=== PATIENT | male | born 1960 | race African-American/Black ===

== ENCOUNTER 2017-03-04 12:05 | Inpatient (IN) | payer OTHER ==
[2017-03-04 13:23] VITALS: BMI 32.8
--- NOTE | 2017-03-04 16:14 | HP ---
COWS - Scale Resting Pulse: 1= MT 81-100 Sweatin=Flushed/Facial Moisture Restless Observation: 1= Difficult to Sit Still Pupil Size: 1= Pupils >than Normal Bone or Joint Aches: 2= Severe Diffuse Aches Runny Nose/ Eye Tearin= Nasal Congestion GI Upset > 30mins: 1= Stomach Cramp Tremor Observation: 1= Tremor Albin, Not Seen Yawning Observation: 0= None Anxiety or Irritability: 1=Feels Anxious/Irritable Goose Flesh Skin: 0=Smooth Skin COWS Score: 11 CIWA Score - CIWA Score Nausea/Vomitin Muscle Tremors: 2 Anxiety: 3 Agitation: 2 Paroxysmal Sweats: 3 Orientation: 0-Oriented Tacttile Disturbances: 2-Mild Itch/Numbness/Burn Auditory Disturbances: 0-None Visual Disturbances: 0-None Headache: 0-None Present CIWA-Ar Total Score: 14 Admission ROS [facility] - HPI Chief Complaint: I need help to stop using drugs Allergies/Adverse Reactions: Allergies Allergy/AdvReac Type Severity Reaction Status Date / Time No Known Allergies Allergy Verified 03/04/17 16:19 History of Present Illness: 56y/o m pt with h/o heroin dep. and chronic alcoholism seeking detox Exam Limitations: No Limitations - Ebola screening Have you traveled outside of the country in the last 21 days: No Have you had contact with anyone from an Ebola affected area: No Have you been sick,other than usual withdrawal symptoms: No Do you have a fever: No - Review of Systems Constitutional: Malaise, Night Sweats, Changes in sleep EENT: reports: Blurred Vision, Dental Problems Respiratory: reports: No Symptoms reported Cardiac: reports: No Symptoms Reported GI: reports: No Symptoms Reported : reports: No Symptoms Reported Musculoskeletal: reports: Muscle Pain Integumentary: reports: Sweating Neuro: reports: Numbness Endocrine: reports: No Symptoms Reported Hematology: reports: No Symptoms Reported Psychiatric: reports: No Sypmtoms Reported Other Systems: Reviewed and Negative Patient History - Patient Medical History Hx Chronic Obstructive Pulmonary Disease (COPD): No Hx Cancer: No Hx Cardiac Disorders: No Hx Congestive Heart Failure: No Hx Hypertension: Yes Hx Hypercholesterolemia: No Hx Pacemaker: No HX Cerebrovascular Accident: No Hx Seizures: No Hx Dementia: No Hx Diabetes: No Hx Gastrointestinal Disorders: No Hx Liver Disease: No Hx Genitourinary Disorders: No Hx Sexually Transmitted Disorders: No Hx Renal Disease (ESRD): No Hx Thyroid Disease: No Hx Human Immunodeficiency Virus (HIV): No Hx Hepatitis C: No Hx Depression: No Hx Suicide Attempt: No Hx Bipolar Disorder: No Hx Schizophrenia: No - Patient Surgical History Past Surgical History: No - PPD History Previous Implant?: No - Reproductive History Patient is a Female of Child Bearing Age (11 -55 yrs old): No - Smoking Cessation Smoking history: Current every day smoker Aproximately how many cigarettes per day: 20 Cigars Per Day: 0 Hx Chewing Tobacco Use: No Initiated information on smoking cessation: Yes 'Breaking Loose' booklet given: 03/04/17 - Substance & Tx. History Substance Use Type: Alcohol, Heroin - Substances Abused Alcohol Route: Inhalation Frequency: Daily Amount used: vodka 1/2 pt /d Age of first use: 18 Date of Last Use: 03/04/17 Heroin Route: Inhalation Frequency: Daily Amount used: 5-10 bags/d Age of first use: 19 Date of Last Use: 03/04/17 Family Disease History - Family Disease History Family Disease History: Diabetes: Brother (htn ), Sister (htn ), Other: Mother ( htn ) Admission Physical Exam S - Vital Signs Vital Signs: Vital Signs - 24 hr 03/04/17 13:20 Temperature 96.9 F L Pulse Rate 69 Respiratory 18 Rate Blood Pressure 130/63 - Physical General Appearance: Yes: Disheveled, Tremorous, Sweating, Anxious HEENTM: Yes: EOMI, Normal Voice, SUNSHINE, Nasal Congestion, Muffled/Hoarse Voice Respiratory: Yes: Chest Non-Tender, Lungs Clear, Normal Breath Sounds, No Respiratory Distress Neck: Yes: Supple, Trachea in good position Breast: Yes: Within Normal Limits Cardiology: Yes: Regular Rhythm, Regular Rate, S1, S2 Abdominal: Yes: Non Tender, Flat, Soft, Increased Bowel Sounds Genitourinary: Yes: Within Normal Limits Back: Yes: Decreased Range of Motion Musculoskeletal: Yes: Back pain Extremities: Yes: Tremors 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, Fully Oriented, Alert, Motor Strength 5/5, Normal Response Integumentary: Yes: Diaphoresis Lymphatic: Yes: Within Normal Limits - Diagnostic (1) Alcohol dependence with uncomplicated withdrawal Current Visit: Yes Status: Chronic (2) Uncomplicated opioid dependence Current Visit: Yes Status: Chronic (3) Nicotine dependence Current Visit: Yes Status: Chronic Qualifiers: Nicotine product type: cigarettes Substance use status: uncomplicated Qualified Code(s): F17.210 - Nicotine dependence, cigarettes, uncomplicated (4) HTN (hypertension) Current Visit: Yes Status: Chronic Qualifiers: Hypertension type: essential hypertension Qualified Code(s): I10 - Essential (primary) hypertension (5) S/P craniotomy Current Visit: Yes Status: Chronic (6) Obesity Current Visit: Yes Status: Chronic Qualifiers: Obesity severity: unspecified obesity severity Cleared for Admission S - Detox or Rehab [facility] Level of Care: Medically Managed Detox Regimen/Protocol: Methadone/Librium S Breath Alcohol Content Breath Alcohol Content: 0.033 Urine Drug Screen - Results Drug Screen Negative: No Urine Drug Screen Results: OPI-Opiates, TCA-Tricyclic Antidepress, OXY-Oxycodone
[2017-03-04] MEDS ORDERED: chlordiazePOXIDE HCL 25 MG CAPSULE PO PRN (16:34)
[2017-03-04] MEDS ORDERED: MAGNESIUM HYDROX 2400MG/30ML ORAL SUSPENSION 30 ML CUP PO PRN (16:34)
[2017-03-04] MEDS ORDERED: LOPERAMIDE HCL 2 MG CAPSULE PO PRN (16:34)
[2017-03-04] MEDS ORDERED: P-EPHED 60MG/TRIPROLIDI 2.5MG TABLET PO PRN (16:34)
[2017-03-04] MEDS ORDERED: MAG HYDROX/AL HYDROX/SIMETH 30 ML UNIT-DOSE CUP PO PRN (16:34)
[2017-03-04] MEDS ORDERED: diphenhydrAMINE HCL 50 MG CAPSULE PO PRN (16:34)
[2017-03-04] MEDS ORDERED: ACETAMINOPHEN 325 MG TABLET (FP) PO PRN (16:34)
[2017-03-04] MEDS ORDERED: hydrOXYzine PAMOATE 25 MG CAPSULE (FP) PO PRN (16:34)
[2017-03-04] MEDS ORDERED: MENTHOL/PHENOL 1 EACH UD MM PRN (16:34)
[2017-03-04] MEDS ORDERED: IBUPROFEN 400 MG TABLET (FP) PO PRN (16:34)
[2017-03-04] MEDS ORDERED: guaiFENesin/D-METHORPHAN HB 10 ML UNIT-DOSE CUPS PO PRN (16:34)
[2017-03-04] MEDS ORDERED: MAGNESIUM CITRATE 300 ML BOTTLE PO PRN (16:34)
[2017-03-04] MEDS ORDERED: METHADONE HCL 10 MG TABLET (FOR DETOX USE ONLY) PO ONE ×2 (17:15→23:00)
[2017-03-04] MEDS: chlordiazePOXIDE HCL 25 MG CAPSULE PO SCH ×2 (18:08→22:29)
[2017-03-04] MEDS: THIAMINE HCL 100 MG TABLET (FP) PO SCH (22:30)
[2017-03-04 23:17] LABS: URINE APPEARANCE SLCLOUDY; URINE BILIRUBIN NEGATIVE (NEGATIVE); URINE BLOOD NEGATIVE (NEGATIVE); URINE GLUCOSE (UA) NEGATIVE (NEGATIVE); URINE KETONE NEGATIVE (NEGATIVE); URINE LEUK ESTERASE NEGATIVE (NEGATIVE); URINE NITRITE NEGATIVE (NEGATIVE); URINE PROTEIN NEGATIVE (NEGATIVE); URINE UROBILINOGEN NEGATIVE E.U./dl (0.2-1.0)
[2017-03-04 23:19] LABS: URINE COLOR YELLOW
[2017-03-05] MEDS: chlordiazePOXIDE HCL 25 MG CAPSULE PO SCH ×4 (05:40→22:19)
--- NOTE | 2017-03-05 08:56 | PN ---
BHS Progress Note Note: EKG shown first degree AV block with occasional PVC. pt states he had a heart attack about 10yrs ago and his EKGs always show some kind of abnormality. Pt denies of any chest pain, no SOB, no pain radiating to any part of body. Pt was advised to let staff aware of any chest pain.
[2017-03-05 09:58] LABS: MCH 26.3 pg (25.7-33.7); MEAN CELL VOLUME 82.3 fl (80-96); MEAN PLT VOLUME 11.3 fl (7.5-11.1); PLATELET COUNT 120 K/MM3 (134-434); RDW 15.3 % (11.9-15.9)
[2017-03-05] MEDS ORDERED: NICOTINE 21 MG/24 HOURS TOPICAL PATCH TD SCH (10:00)
[2017-03-05] MEDS ORDERED: METHADONE HCL 10 MG TABLET (FOR DETOX USE ONLY) PO SCH (10:00)
[2017-03-05] MEDS ORDERED: PRENATAL VITAMINS W/ FOLIC ACID TABLET (FP) PO SCH (10:00)
[2017-03-05 10:09] LABS: ALBUMIN 3.6 g/dl (3.4-5.0); ALK PHOS 80 U/L (45-117); ANION GAP 6 (8-16); BILIRUBIN,TOTAL 0.4 mg/dL (0.2-1.0); CALCIUM 8.9 mg/dL (8.5-10.1); CO2 28 mmol/L (21-32); CREATININE 1.1 mg/dL (0.7-1.3); GLUCOSE,RANDOM 97 mg/dL (74-106); SGOT/AST 28 U/L (15-37); SGPT/ALT 36 U/L (12-78); TOT PROT 7.1 g/dl (6.4-8.2)
--- NOTE | 2017-03-05 10:10 | EKG ---
Test Reason : Blood Pressure : / mmHG Vent. Rate : 068 BPM Atrial Rate : 054 BPM P-R Int : 242 ms QRS Dur : 080 ms QT Int : 446 ms P-R-T Axes : 064 030 026 degrees QTc Int : 474 ms SINUS BRADYCARDIA WITH 1ST DEGREE A-V BLOCK WITH OCCASIONAL PREMATURE VENTRICULAR COMPLEXES NONSPECIFIC T WAVE ABNORMALITY PROLONGED QT ABNORMAL ECG WHEN COMPARED WITH ECG OF 04-MAR-2017 16:34, CRITERIA FOR SEPTAL INFARCT ARE NO LONGER PRESENT NON-SPECIFIC CHANGE IN ST SEGMENT IN ANTERIOR LEADS QT HAS LENGTHENED Confirmed by KARRIE GARCIA, EDISON ([id number]) on 03/05/2017 10:10:08 AM Referred By: Confirmed By:EDISON YOON MD
--- NOTE | 2017-03-05 10:13 | PN ---
[facility] CIWA - CIWA Score Nausea/Vomitin-No Nausea/No Vomiting Muscle Tremors: 3 Anxiety: 3 Agitation: 3 Paroxysmal Sweats: 3 Orientation: 0-Oriented Tacttile Disturbances: 0-None Auditory Disturbances: 0-None Visual Disturbances: 0-None Headache: 0-None Present CIWA-Ar Total Score: 12 S COWS - Scale Resting Pulse: 0= [place] 80 or Below Sweatin=Flushed/Facial Moisture Restless Observation: 1= Difficult to Sit Still Pupil Size: 0= Normal to Room Light Bone or Joint Aches: 1= Mild Discomfort Runny Nose/ Eye Tearin= Nasal Congestion GI Upset > 30mins: 0= None Tremor Observation of Outstretched Hands: 2= Slight Tremor Visible Yawning Observation: 2= >3x During Session Anxiety or Irritability: 2=Irritable/Anxious Goose Flesh Skin: 0=Smooth Skin COWS Score: 11 S Progress Note (SOAP) Subjective: agitation anxiety sweats interrupted sleep tired Objective: 03/05/17 10:04 Vital Signs Temperature 97.9 F 03/05/17 09:55 Pulse Rate 63 03/05/17 09:55 Respiratory Rate 20 03/05/17 09:55 Blood Pressure 140/74 03/05/17 09:55 O2 Sat by Pulse Oximetry (%) Laboratory Tests 03/04/17 03/05/17 21:29 06:00 Sodium 144 Potassium 4.1 Chloride 110 H Urine Color Yellow Urine Appearance Slcloudy Urine pH 5.0 Ur Specific [place] 1.026 Urine Protein Negative Urine Glucose (UA) Negative Urine Ketones Negative Urine Blood Negative Urine Nitrite Negative Urine Bilirubin Negative Urine Urobilinogen Negative Ur Leukocyte Esterase Negative labs pending awake/alert ambulating no acute distress Assessment: 03/05/17 10:13 withdrawal sx Plan: continue detox increase fluids labs pending
[2017-03-05] MEDS ORDERED: amLODIPine BESYLATE 10 MG TABLET (FP) PO ONE (10:38)
[2017-03-05] MEDS ORDERED: HYDROCHLOROTHIAZIDE 25 MG TABLET (FP) PO ONE (10:38)
--- NOTE | 2017-03-05 11:06 | CONSULT ---
[facility] Psychiatric Consult - Data Date of interview: 03/05/17 Admission source: [facility] Identifying data: Readmission to [facility] for this 56 y/o AA male seeking detox treatment for alcohol and heroin dependence.Patient is single without children,homeless,unemployed and supported on Public Assistance. Substance Abuse History: - Smoking Cessation. Smoking history: Current every day smoker. Aproximately how many cigarettes per day: 20. Cigars Per Day: 0. Hx Chewing Tobacco Use: No. Initiated information on smoking cessation: Yes. ' Breaking Loose' booklet given: 03/04/17. - Substance & Tx. History. Substance Use Type: Alcohol, Heroin. - Substances Abused. Alcohol. Route: Inhalation. Frequency: Daily. Amount used: vodka 1/2 pt /d. Age of first use : 18. Date of Last Use: 03/04/17. Heroin. Route: Inhalation. Frequency: Daily. Amount used: 5-10 bags/d. Age of first use: 19. Date of Last Use: 03/17. Confirmed by patient. Medical History: Hepatitis C,hypertension and a history of head trauma ( craniotomy performed in 1985). Psychiatric History: Patient denies. Physical/Sexual Abuse/Trauma History: Patient denies. Additional Comment: Urine Drug Screen Results: OPI-Opiates, TCA-Tricyclic Antidepressant, OXY-Oxycodone.Noted. Mental Status Exam - Mental Status Exam Alert and Oriented to: Time, Place, Person Cognitive Function: Good Patient Appearance: Well Groomed (surgical scar on forehead) Mood: Hopeful, Euthymic Affect: Appropriate, Normal Range Patient Behavior: Fatigued, Appropriate, Cooperative Speech Pattern: Clear, Appropriate Voice Loudness: Normal Thought Process: Goal Oriented Thought Disorder: Not Present Hallucinations: Denies Suicidal Ideation: Denies Homicidal Ideation: Denies Insight/Judgement: Poor Sleep: Poorly, Difficulty falling asleep (asking for ambien) Appetite: Good Muscle strength/Tone: Normal Gait/Station: Normal Psychiatric Findings - Problem List ([place] 1, 2,3) (1) Alcohol dependence with uncomplicated withdrawal Current Visit: Yes Status: Acute (2) Uncomplicated opioid dependence Current Visit: Yes Status: Chronic (3) Nicotine dependence Current Visit: Yes Status: Acute Qualifiers: Nicotine product type: cigarettes Substance use status: uncomplicated Qualified Code(s): F17.210 - Nicotine dependence, cigarettes, uncomplicated (4) HTN (hypertension) Current Visit: Yes Status: Chronic Qualifiers: Hypertension type: essential hypertension Qualified Code(s): I10 - Essential (primary) hypertension (5) Obesity Current Visit: Yes Status: Chronic Qualifiers: Obesity severity: unspecified obesity severity (6) S/P craniotomy Current Visit: Yes Status: Chronic (7) Insomnia Current Visit: Yes Status: Acute - Initial Treatment Plan Initial Treatment Plan: Psychoeducation.Detoxification.Ambien 10 mg po prn hs.Patient is made aware of the risk of parasomnias.He agrees with this plan.Observation.
[2017-03-05 21:23] VITALS: BP 152/72; PULSE 69; TEMP 98.8
[2017-03-05] MEDS ORDERED: ZOLPIDEM TARTRATE 10 MG TABLET (PARK CARE ONLY) PO PRN (22:00)
[2017-03-05] MEDS: THIAMINE HCL 100 MG TABLET (FP) PO SCH (22:17)
[2017-03-06] MEDS ORDERED: amLODIPine BESYLATE 10 MG TABLET (FP) PO SCH (10:00)
[2017-03-06] MEDS ORDERED: METHADONE HCL 5 MG TABLET (FOR DETOX USE ONLY) PO SCH (10:00)
[2017-03-06] MEDS ORDERED: HYDROCHLOROTHIAZIDE 25 MG TABLET (FP) PO SCH (10:00)
--- NOTE | 2017-03-06 16:30 | EKG ---
Test Reason : Blood Pressure : / mmHG Vent. Rate : 070 BPM Atrial Rate : 070 BPM P-R Int : 218 ms QRS Dur : 078 ms QT Int : 384 ms P-R-T Axes : 065 061 018 degrees QTc Int : 414 ms SINUS RHYTHM WITH 1ST DEGREE A-V BLOCK WITH FREQUENT PREMATURE VENTRICULAR COMPLEXES SEPTAL INFARCT , AGE UNDETERMINED ABNORMAL ECG NO PREVIOUS ECGS AVAILABLE Confirmed by CHRISTY JACKSON MD ([id number]) on 03/06/2017 4:29:50 PM Referred By: Confirmed By:CHRISTY JACKSON MD
[2017-03-06] MEDS ORDERED: chlordiazePOXIDE 5 MG CAPSULE PO SCH (17:00)
[2017-03-07] MEDS ORDERED: chlordiazePOXIDE HCL 10 MG CAPSULE PO SCH (17:00)
[2017-03-08] MEDS ORDERED: METHADONE HCL 10 MG TABLET (FOR DETOX USE ONLY) PO SCH (10:00)
[2017-03-09] MEDS ORDERED: METHADONE HCL 5 MG TABLET (FOR DETOX USE ONLY) PO SCH (06:00)
--- NOTE | 2017-04-10 14:19 | DS ---
[facility] Detox Discharge Summary Admission Date: 03/04/17 Discharge Date: 03/05/17 - History Present History: Alcohol Dependence, Opioid Dependence - Physical Exam Results Vital Signs: Vital Signs Temperature 98.8 F 03/05/17 21:23 Pulse Rate 69 03/05/17 21:23 Respiratory Rate 20 03/05/17 21:23 Blood Pressure 152/72 03/05/17 21:23 O2 Sat by Pulse Oximetry (%) - Treatment Hospital Course: Detox Protocol Followed - Medication Discharge Medications: Ambulatory Orders Amlodipine Besylate [Norvasc -] 10 mg PO DAILY 03/04/17 Hydrochlorothiazide [Hctz -] 25 mg PO DAILY 03/04/17 Zolpidem Tartrate [Ambien] 10 mg PO HS PRN 03/04/17 - Diagnosis (1) Alcohol dependence with uncomplicated withdrawal Status: Chronic (2) Uncomplicated opioid dependence Status: Chronic (3) Nicotine dependence Status: Acute Qualifiers: Nicotine product type: cigarettes Substance use status: uncomplicated Qualified Code(s): F17.210 - Nicotine dependence, cigarettes, uncomplicated (4) HTN (hypertension) Status: Chronic Qualifiers: Hypertension type: essential hypertension Qualified Code(s): I10 - Essential (primary) hypertension (5) S/P craniotomy Status: Chronic (6) Obesity Status: Chronic Qualifiers: Obesity severity: unspecified obesity severity - AMA Did Patient Leave Against Medical Advice: No (PT WAS D/CINTIA FOR VERBAL ABUSE TO RN )
== END 2017-03-05 22:56 | disposition left against medical advice (07) | DRG 770 ==
LOC: YASAS 12:05 → Y6N 16:50
PROVIDERS: ADMIT Internal Medicine Addiction Medicine; ATTEND Internal Medicine Addiction Medicine
PROC: HZ2ZZZZ Detoxification Services for Substance Abuse Treatment (ICD-10-PCS; principal; 2017-03-04)
DX: F11.20 Opioid dependence, uncomplicated (principal); F10.230 Alcohol dependence with withdrawal, uncomplicated; F17.210 Nicotine dependence, cigarettes, uncomplicated; I10 Essential (primary) hypertension; I44.2 Atrioventricular block, complete; E66.9 Obesity, unspecified; Z68.32 Body mass index [BMI] 32.0-32.9, adult; G47.00 Insomnia, unspecified
CPT/HCPCS: 36415; 80053; 81003; 85027; 86593; 93005; 93010

== ENCOUNTER 2019-11-05 15:31 | Inpatient (IN) | payer OTHER ==
[2019-11-05 17:05] VITALS: BMI 30.1
--- NOTE | 2019-11-05 20:00 | HP ---
CIWA Score Nausea/Vomitin Muscle Tremors: 4-Moderate,w/Arms Extend Anxiety: 3 Agitation: 1-Slight > Activity Paroxysmal Sweats: 3 (Increased facial moisture) Orientation: 0-Oriented Tacttile Disturbances: 0-None Auditory Disturbances: 0-None Visual Disturbances: 0-None Headache: 0-None Present CIWA-Ar Total Score: 14 - Admission Criteria [facility]ASAS Guidelines: Admission for Medically Managed Detox: Requires at least one of the followin. CIWA greater than 12 2. Seizures within the past 24 hours 3. Delirium tremens within the past 24 hours 4. Hallucinations within the past 24 hours 5. Acute intervention needed for co occurring medical disorder 6. Acute intervention needed for co occurring psychiatric disorder 7. Severe withdrawal that cannot be handled at a lower level of care (continued vomiting, continued diarrhea, abnormal vital signs) requiring intravenous medication and/or fluids 8. Patient presents the following: CIWA greater than 12 Admission Criteria Met: Admission criteria met Admitting History and Physical - Smoking History Smoking history: Current every day smoker Aproximately how many cigarettes per day: 20 Admission ROS [facility] Chief Complaint: Here because mandated by national service officer. Allergies/Adverse Reactions: Allergies Allergy/AdvReac Type Severity Reaction Status Date / Time No Known Allergies Allergy Verified 11/05/19 16:50 History of Present Illness: 59 yo presents w/ alcohol and opiate use mandated into detox by parole. Seizure 3 years ago. Used to be on Dilantin. Denies blackouts or overdoses. BC: 0.0 UToX: + FEN/MOP/MTD/BAR Alcohol use began at age 17. Currently drinks 1/2 - 1 pint vodka daily x 4 months. Drinks 1 -16 oz beer. Last drink 11/04/19. Heroin use since age 20. Hx 2 yrs MMTP before going to [facility] in July. Current Methadone dose is "80 or 90" mg (Unsure). States LDM 11/05/19. States relapsing w/ heroin when misses clinic visit. No Narcan kit at home. Discussed benefits and states is interested in getting one. Nicotine use since age teens. Currently smokes 1/2 PPD. PMHx: HTN, Sporadic seizures r/t TBI (None in 3 yrs) Hx Abnormak EKG noted on 03/05/17. MHHx: Depression. Anxiety. Schizophrenia. On meds. Sees a Psych regularly. Denies thoughts of harming self or others. SHx: Domiciled. Unemployed ([employer]). States currently mandated by [place]. Search Terms: Stephen Acevedo, 1960 Search Date: 11/05/2019 08:00:34 PM The Drug Utilization Report below displays all of the controlled substance prescriptions, if any, that your patient has filled in the last twelve months. The information displayed on this report is compiled from pharmacy submissions to the Department, and accurately reflects the information as submitted by the pharmacies. This report was requested by: Valerie Damon | Reference #: [id number] There are no results for the search terms that you entered. Exam Limitations: No Limitations - Ebola screening Have you traveled outside of the country in the last 21 days: No Have you had contact with anyone from an Ebola affected area: No Have you been sick,other than usual withdrawal symptoms: No Do you have a fever: No - Review of Systems Constitutional: Chills, Diaphoresis, Changes in sleep (Difficulty faliing and staying asleep), Weight Stable EENT: reports: Blurred Vision, Nose Congestion, Dental Problems (Bad teeth. Chews and swallows ok.) Respiratory: reports: SOB with Exertion (w/ walking too much and stair climbing) Cardiac: reports: Other (Abnormal EKG. Denies surgery/stents) GI: reports: Diarrhea (loose, brownish/oneill x 5 x this a.m.), Nausea, Vomiting ( this a.m. vomited yellowish liquid) : reports: No Symptoms Reported Musculoskeletal: reports: No Symptoms Reported Integumentary: reports: No Symptoms Reported Neuro: reports: Seizure (None recently), Tremors Endocrine: reports: No Symptoms Reported Hematology: reports: No Symptoms Reported Psychiatric: reports: Mood/Affect Appropiate, Orientated x3, Anxious, Depressed (Denies thoughts of harming self or others.) Patient History - Patient Medical History Hx Asthma: No Hx Chronic Obstructive Pulmonary Disease (COPD): No Hx Cancer: No Hx Cardiac Disorders: No Hx Congestive Heart Failure: No Hx Hypertension: Yes Hx Hypercholesterolemia: No Hx Pacemaker: No HX Cerebrovascular Accident: No Hx Seizures: No Hx Dementia: No Hx Diabetes: No Hx Gastrointestinal Disorders: No Hx Liver Disease: No Hx Genitourinary Disorders: No Hx Sexually Transmitted Disorders: No Hx Renal Disease (ESRD): No Hx Thyroid Disease: No Hx Human Immunodeficiency Virus (HIV): No Hx Hepatitis C: No Hx Depression: No Hx Suicide Attempt: No Hx Bipolar Disorder: No Hx Schizophrenia: No - Patient Surgical History Past Surgical History: No Hx Neurologic Surgery: Yes (crainotomy in 1985) - PPD History Previous Implant?: Yes Documented Results: Negative w/proof Implanted On Prior R Admission?: Yes Date: 03/06/17 PPD to be Administered?: Yes - Smoking Cessation Smoking history: Current every day smoker Aproximately how many cigarettes per day: 10 Cigars Per Day: 0 Hx Chewing Tobacco Use: No Initiated information on smoking cessation: Yes 'Breaking Loose' booklet given: 11/05/19 - Substance & Tx. History Hx Alcohol Use: Yes Hx Substance Use: Yes Substance Use Type: Alcohol, Heroin, Opiates Hx Substance Use Treatment: Yes (detox, rehab, Currently on MMTP) - Substances abused Alcohol Substance route: Oral Frequency: Daily Amount used: half of pint of vodka/ 16 ounces of beer. Age of first use: 17 Date of last use: 11/04/19 Heroin Substance route: Inhalation Frequency: Daily Amount used: 3 bags Age of first use: 20 Date of last use: 11/04/19 Other Other (specify): Benzo Substance route: Oral Frequency: Daily Amount used: not sure of the amount Age of first use: 20 Date of last use: 11/04/19 Admission Physical Exam BHS - Vital Signs Vital Signs: Vital Signs - 24 hr 11/05/19 16:50 Temperature 98.8 F Pulse Rate 62 Respiratory 16 Rate Blood Pressure 144/84 - Physical General Appearance: Yes: Nourished, Mild Distress, Tremorous, Sweating ( Increased facial moisture), Anxious HEENTM: Yes: EOMI, Hearing grossly Normal, Normocephalic, Normal Voice, SUNSHINE, Pharynx Normal, Nasal Congestion, Other (Contact Lenses insitu.) Respiratory: Yes: Lungs Clear (Pulse Ox = 97%), Normal Breath Sounds, No Respiratory Distress Neck: Yes: No masses,lesions,Nodules, Supple Breast: Yes: Breast Exam Deferred Cardiology: Yes: S1, S2, Bradycardia (HR: 58) Abdominal: Yes: Non Tender, Flat, Soft, Increased Bowel Sounds Genitourinary: Yes: Within Normal Limits Back: Yes: Normal Inspection Musculoskeletal: Yes: full range of Motion, Gait Steady Extremities: Yes: Normal Capillary Refill (Peripheral pulses +), Tremors 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, Fully Oriented, Alert, Motor Strength 5/5, Normal Response Integumentary: Yes: Normal Color, Warm, Diaphoresis, Other (Old surgical scars on head.) Lymphatic: Yes: Within Normal Limits - Diagnostic (1) Methadone maintenance therapy patient Current Visit: Yes Status: Chronic (2) Nicotine dependence Current Visit: Yes Status: Chronic Qualifiers: Nicotine product type: cigarettes Substance use status: uncomplicated Qualified Code(s): F17.210 - Nicotine dependence, cigarettes, uncomplicated (3) Alcohol dependence with uncomplicated withdrawal Current Visit: Yes Status: Acute (4) HTN (hypertension) Current Visit: Yes Status: Chronic Qualifiers: Hypertension type: essential hypertension Qualified Code(s): I10 - Essential (primary) hypertension (5) Obesity Current Visit: Yes Status: Chronic (6) Abnormal EKG Current Visit: Yes Status: Chronic (7) Hx of seizure disorder Current Visit: No Status: Resolved (8) Hx of traumatic brain injury Current Visit: Yes Status: Chronic Cleared for Admission S - Detox or Rehab [facility] Level of Care: Medically Managed Detox Regimen/Protocol: Valium Claeared for Rehab Admission: No Breathalyzer - Breathalyzer Breathalyzer: 0 Inpatient Rehab Admission - Rehab Decision to Admit Inpatient rehab admission?: No
[2019-11-05] MEDS ORDERED: BISMUTH SUBSALICYLATE 524 MG/30 ML UD PO PRN (20:55)
[2019-11-05] MEDS ORDERED: MAGNESIUM CITRATE 300 ML BOTTLE PO PRN (20:55)
[2019-11-05] MEDS ORDERED: MAGNESIUM HYDROX 2400MG/30ML ORAL SUSPENSION 30 ML CUP PO PRN (20:55)
[2019-11-05] MEDS ORDERED: MENTHOL/PHENOL 1 EACH UD MM PRN (20:55)
[2019-11-05] MEDS ORDERED: MAG HYDROX/AL HYDROX/SIMETH 30 ML UNIT-DOSE CUP PO PRN (20:55)
[2019-11-05] MEDS ORDERED: IBUPROFEN 400 MG TABLET (FP) PO PRN (20:55)
[2019-11-05] MEDS ORDERED: NICOTINE POLACRILEX 2 MG GUM BUC PRN (20:55)
[2019-11-05] MEDS ORDERED: ACETAMINOPHEN 325 MG TABLET (FP) PO PRN ×2 (20:55)
[2019-11-05] MEDS ORDERED: MELATONIN 5 MG TABLETS PO PRN (20:55)
[2019-11-05] MEDS: diazePAM 5 MG TABLET PO SCH (22:45)
[2019-11-05] MEDS: THIAMINE HCL 100 MG TABLET (FP) PO SCH (22:45)
[2019-11-06] MEDS: diazePAM 5 MG TABLET PO SCH ×3 (06:38→22:14)
[2019-11-06] MEDS ORDERED: METHADONE HCL 10 MG TABLET PO SCH (10:00)
[2019-11-06] MEDS: METHADONE HCL 40 MG DISPERSABLE TABLET PO SCH (10:32)
[2019-11-06] MEDS: amLODIPine BESYLATE 10 MG TABLET (FP) PO SCH (10:33)
[2019-11-06] MEDS: NICOTINE 14 MG/24 HOURS TOPICAL PATCH TD SCH (10:33)
[2019-11-06] MEDS: HYDROCHLOROTHIAZIDE 25 MG TABLET (FP) PO SCH (10:33)
[2019-11-06] MEDS: PRENATAL VITAMINS W/ FOLIC ACID TABLET (FP) PO SCH (10:33)
[2019-11-06 10:37] LABS: MCH 26.4 pg (25.7-33.7); MCHC 32.4 g/dl (32.0-35.9); MEAN CELL VOLUME 81.4 fl (80-96); MEAN PLT VOLUME 10.1 fl (7.5-11.1); PLATELET COUNT 135 K/MM3 (134-434); RBC 4.54 M/mm3 (4.00-5.60); RDW 15.3 % (11.9-15.9)
[2019-11-06 10:49] LABS: ALBUMIN 3.3 g/dl (3.4-5.0); BILIRUBIN,TOTAL 0.2 mg/dL (0.2-1); BLOOD UREA NITROGEN 18.6 mg/dL (7-18); CALCIUM 8.6 mg/dL (8.5-10.1); CREATININE 1.1 mg/dL (0.55-1.3); TOT PROT 6.1 g/dl (6.4-8.2)
--- NOTE | 2019-11-06 16:36 | PN ---
[facility] CIWA - CIWA Score Nausea/Vomitin-No Nausea/No Vomiting Muscle Tremors: 3 Anxiety: 2 Agitation: 2 Paroxysmal Sweats: 2 Orientation: 0-Oriented Tacttile Disturbances: 0-None Auditory Disturbances: 0-None Visual Disturbances: 2-Mild Sensitivity Headache: 0-None Present CIWA-Ar Total Score: 11 S Progress Note (SOAP) Subjective: Tremors, Anxious, Sweating. Objective: PATIENT A & O X 3, OBSERVED AMBULATING ON DETOX UNIT UNASSISTED. IN NO ACUTE DISTRESS. 11/06/19 16:32 Vital Signs Temperature 98.1 F 11/06/19 13:46 Pulse Rate 58 L 11/06/19 13:46 Respiratory Rate 18 11/06/19 13:46 Blood Pressure 151/82 11/06/19 13:46 O2 Sat by Pulse Oximetry (%) Laboratory Tests 11/06/19 11/06/19 11/06/19 07:40 07:40 07:40 WBC 4.0 RBC 4.54 Hgb 12.0 Hct 37.0 MCV 81.4 MCH 26.4 MCHC 32.4 RDW 15.3 Plt Count 135 MPV 10.1 D Sodium 144 Potassium 4.0 Chloride 110 H Carbon Dioxide 28 Anion Gap 6 L BUN 18.6 H Creatinine 1.1 Est GFR (CKD-EPI)AfAm 85.31 Est GFR (CKD-EPI)NonAf 73.61 Random Glucose 96 Calcium 8.6 Total Bilirubin 0.2 AST 21 ALT 28 Alkaline Phosphatase 88 Total Protein 6.1 L Albumin 3.3 L RPR Titer Nonreactive LABS NOTED. Assessment: 11/06/19 16:34 WITHDRAWAL SYMPTOMS. Plan: CONTINUE DETOX. INCREASE DAILY ORAL WATER INTAKE. STAFF MECHANICAL ENGINEER OBSERVED PATIENT DISCARDING MMTP DOSE THIS AM. WHEN ASKED WHY , PATIENT STATED THAT "HE DID NOT FEEL THAT HE NEEDED IT FOR TODAY." PATIENT ADVISED TO TAKE DAILY MMTP DOSES EACH DAY DURING REMAINDER OF HIS DETOX ADMISSION AND TO CONSULT MEDICAL PROVIDER AT HIS MMTP CLINIC ([facility]) AFTER DISCHARGE FOR FURTHER EVALUATION IF HE REQUIRES A DOSAGE ADJUSTMENT. PATIENT VERBALIZED UNDERSTANDING OF RECOMMENDATION.
--- NOTE | 2019-11-06 16:38 | CONSULT ---
[facility] Psychiatric Consult - Data Date of interview: 11/06/19 Admission source: [facility] Identifying data: Revisit to [facility] and admission to [address] [place] [address] for this 59 y/o AA male self-referred for detoxification (LUIS EDUARDO issues : alcohol, heroin, nicotine ). Patient is single without children, homeless, unemployed and supported on Public Assistance. Substance Abuse History: Discussed with patient. Details in current [facility] report as follows : Smoking history: Current every day smoker. Aproximately how many cigarettes per day: 10. Cigars Per Day: 0. Hx Chewing Tobacco Use: No. Initiated information on smoking cessation: Yes. 'Breaking Loose' booklet given : 11/05/19. - Substance & Tx. History. Hx Alcohol Use: Yes. Hx Substance Use : Yes. Substance Use Type: Alcohol, Heroin, Opiates. Hx Substance Use Treatment: Yes (detox, rehab, Currently on MMTP). - Substances abused. Alcohol. Substance route: Oral. Frequency: Daily. Amount used: half of pint of vodka/ 16 ounces of beer. Age of first use: 17. Date of last use: . Heroin. Substance route: Inhalation. Frequency: Daily. Amount used: 3 bags. Age of first use: 20. Date of last use: 11/04/19. Other. Other ( specify): Benzo. Substance route: Oral. Frequency: Daily. Amount used: not sure of the amount. Age of first use: 20. Date of last use: 11/04/19 Medical History: Medical profile is remarkable for hepatitis C, hypertension and a history of head trauma (craniotomy performed in 1985). Psychiatric History: No reported history of psychiatric hospitalizations. Patient endorses the diagnosis of Anxiety Disorder and Schizoaffective Disorder. Mr Mckeon is reportedly followed at [facility] in [place]. Medicated with remeron + depakote (doses not recalled). Patient denies history of suicide attempts. Currently on methadone maintenance (80 mg/ day) at the [facility] MMTP program. Physical/Sexual Abuse/Trauma History: Patient denies. Additional Comment: No toxicology available for review. Mental Status Exam - Mental Status Exam Alert and Oriented to: Time, Place, Person Cognitive Function: Good Patient Appearance: Well Groomed Mood: Hopeful Affect: Appropriate, Normal Range Patient Behavior: Appropriate, Cooperative Speech Pattern: Clear Voice Loudness: Normal Thought Process: Goal Oriented Thought Disorder: Not Present Hallucinations: Denies Suicidal Ideation: Denies Homicidal Ideation: Denies Insight/Judgement: Poor Sleep: Poorly, Difficulty falling asleep Appetite: Good Muscle strength/Tone: Normal Gait/Station: Normal Psychiatric Findings - Problem List ([place] 1, 2,3) (1) Alcohol dependence with uncomplicated withdrawal Current Visit: Yes Status: Acute (2) Opioid dependence on agonist therapy Current Visit: Yes Status: Chronic (3) Nicotine dependence Current Visit: Yes Status: Chronic Qualifiers: Nicotine product type: cigarettes Substance use status: uncomplicated Qualified Code(s): F17.210 - Nicotine dependence, cigarettes, uncomplicated (4) Schizophrenia Current Visit: Yes Status: Chronic Comment: As per self-report. (5) Insomnia Current Visit: Yes Status: Chronic - Initial Treatment Plan Initial Treatment Plan: Psychoeducation. Sleep hygiene. Detoxification. AA/NA meetings. Remeron 15 mg po hs. Side effects/benefits are discussed with the patient. Gave consent (verbal) to MD. Call made by underwriter solicitation director to [facility], at [phone], for verification of medications : mailbox full/no messages accepted. Observation.
[2019-11-06] MEDS: diazePAM 5 MG TABLET PO PRN (17:48)
[2019-11-06] MEDS ORDERED: OLANZapine 5 MG TABLET PO SCH (22:00)
[2019-11-06] MEDS: THIAMINE HCL 100 MG TABLET (FP) PO SCH (22:13)
[2019-11-06] MEDS: MIRTAZAPINE 15 MG TABLET (FP) PO SCH (22:13)
--- NOTE | 2019-11-06 23:27 | EKG ---
Test Reason : Blood Pressure : / mmHG Vent. Rate : 053 BPM Atrial Rate : 053 BPM P-R Int : 236 ms QRS Dur : 084 ms QT Int : 512 ms P-R-T Axes : 056 030 -15 degrees QTc Int : 480 ms SINUS BRADYCARDIA WITH 1ST DEGREE A-V BLOCK POSSIBLE LEFT ATRIAL ENLARGEMENT SEPTAL INFARCT , AGE UNDETERMINED T WAVE ABNORMALITY, CONSIDER LATERAL ISCHEMIA ABNORMAL ECG WHEN COMPARED WITH ECG OF 05-MAR-2017 06:11, PREMATURE VENTRICULAR COMPLEXES ARE NO LONGER PRESENT SEPTAL INFARCT IS NOW PRESENT T WAVE VARIATION Confirmed by ANATOLIY GARCIA, TEO ([id number]) on 11/06/2019 11:27:20 PM Referred By: JOSE A MUSA Confirmed By:TEO COPE MD
[2019-11-07] MEDS: METHADONE HCL 40 MG DISPERSABLE TABLET PO SCH (06:29)
[2019-11-07] MEDS: diazePAM 5 MG TABLET PO SCH ×2 (06:29→18:11)
[2019-11-07] MEDS: HYDROCHLOROTHIAZIDE 25 MG TABLET (FP) PO SCH (10:45)
[2019-11-07] MEDS: amLODIPine BESYLATE 10 MG TABLET (FP) PO SCH (10:45)
[2019-11-07] MEDS: PRENATAL VITAMINS W/ FOLIC ACID TABLET (FP) PO SCH (10:45)
[2019-11-07] MEDS: NICOTINE 14 MG/24 HOURS TOPICAL PATCH TD SCH (10:45)
[2019-11-07] MEDS: diazePAM 5 MG TABLET PO PRN ×2 (12:47→21:53)
--- NOTE | 2019-11-07 16:48 | PN ---
[facility] CIWA - CIWA Score Nausea/Vomitin-Mild Nausea/No Vomiting Muscle Tremors: 2 Anxiety: 2 Agitation: 2 Paroxysmal Sweats: 2 Orientation: 0-Oriented Tacttile Disturbances: 1-Very Mild Itch/Numbness Auditory Disturbances: 0-None Visual Disturbances: 0-None Headache: 0-None Present CIWA-Ar Total Score: 10 S Progress Note (SOAP) Subjective: Chills, sweating, tremor. Patient requesting vistaril and clonidine prn for withdrawal sxs. Objective: 11/07/19 16:47 Last Vital Signs Temp Pulse Resp BP Pulse Ox 98.1 F 63 18 136/66 11/07/19 15:07 11/07/19 15:07 11/07/19 15:07 11/07/19 15:07 Elevated b/p noted: has htn, on medication Laboratory Tests 11/06/19 11/06/19 11/06/19 07:40 07:40 07:40 WBC 4.0 RBC 4.54 Hgb 12.0 Hct 37.0 MCV 81.4 MCH 26.4 MCHC 32.4 RDW 15.3 Plt Count 135 MPV 10.1 D Sodium 144 Potassium 4.0 Chloride 110 H Carbon Dioxide 28 Anion Gap 6 L BUN 18.6 H Creatinine 1.1 Est GFR (CKD-EPI)AfAm 85.31 Est GFR (CKD-EPI)NonAf 73.61 Random Glucose 96 Calcium 8.6 Total Bilirubin 0.2 AST 21 ALT 28 Alkaline Phosphatase 88 Total Protein 6.1 L Albumin 3.3 L RPR Titer Nonreactive Labs reviewed Assessment: 11/07/19 16:48 Withdrawal sxs Plan: Continue detox Encouraged PO water intake
[2019-11-07] MEDS: MIRTAZAPINE 15 MG TABLET (FP) PO SCH (21:39)
[2019-11-07] MEDS: THIAMINE HCL 100 MG TABLET (FP) PO SCH (21:39)
[2019-11-07] MEDS: hydrOXYzine PAMOATE 50 MG CAPSULE (FP) PO PRN (23:17)
[2019-11-08] MEDS ORDERED: diazePAM 5 MG TABLET PO ONE (06:00)
[2019-11-08] MEDS: diazePAM 5 MG TABLET PO SCH ×2 (07:18→16:59)
[2019-11-08] MEDS ORDERED: METHADONE HCL 40 MG DISPERSABLE TABLET PO ONE (10:00)
[2019-11-08] MEDS: amLODIPine BESYLATE 10 MG TABLET (FP) PO SCH (10:08)
[2019-11-08] MEDS: PRENATAL VITAMINS W/ FOLIC ACID TABLET (FP) PO SCH (10:08)
[2019-11-08] MEDS: NICOTINE 14 MG/24 HOURS TOPICAL PATCH TD SCH (10:08)
[2019-11-08] MEDS: HYDROCHLOROTHIAZIDE 25 MG TABLET (FP) PO SCH (10:08)
--- NOTE | 2019-11-08 10:11 | PN ---
[facility] Progress Note Note: Patient requests to have psychotropic medications he brought with him. He was seen by Dr Staley on and he ordered only Remeron 15 mg/hs. In his property, patient has Zyprexa 5 mg/day in addition to Remeron 15 mg.hs. Will order Zyprexa 5 mg/day
[2019-11-08] MEDS: diazePAM 5 MG TABLET PO PRN ×2 (10:29→20:38)
[2019-11-08] MEDS: METHADONE HCL 40 MG DISPERSABLE TABLET PO SCH (10:36)
--- NOTE | 2019-11-08 13:21 | PN ---
[facility] CIWA - CIWA Score Nausea/Vomitin-Mild Nausea/No Vomiting Muscle Tremors: 1-None Visible, but [place] Anxiety: 3 Agitation: 3 Paroxysmal Sweats: No Perspiration Orientation: 0-Oriented Tacttile Disturbances: 1-Very Mild Itch/Numbness Auditory Disturbances: 0-None Visual Disturbances: 0-None Headache: 0-None Present CIWA-Ar Total Score: 9 [facility] Progress Note (SOAP) Subjective: alert,irritable,anxious,interrupted sleep,would like to see psychiatrist for medication Objective: 11/08/19 13:21 Vital Signs Temperature 97.9 F 11/08/19 11:48 Pulse Rate 68 11/08/19 11:48 Respiratory Rate 16 11/08/19 11:48 Blood Pressure 133/77 11/08/19 11:48 O2 Sat by Pulse Oximetry (%) Laboratory Last Values WBC 4.0 K/mm3 (4.0-10.0) 11/06/19 07:40 RBC 4.54 M/mm3 (4.00-5.60) 11/06/19 07:40 Hgb 12.0 GM/dL (11.7-16.9) 11/06/19 07:40 Hct 37.0 % (35.4-49) 11/06/19 07:40 MCV 81.4 fl (80-96) 11/06/19 07:40 MCH 26.4 pg (25.7-33.7) 11/06/19 07:40 MCHC 32.4 g/dl (32.0-35.9) 11/06/19 07:40 RDW 15.3 % (11.9-15.9) 11/06/19 07:40 Plt Count 135 K/MM3 (134-434) 11/06/19 07:40 MPV 10.1 fl (7.5-11.1) D 11/06/19 07:40 Sodium 144 mmol/L (136-145) 11/06/19 07:40 Potassium 4.0 mmol/L (3.5-5.1) 11/06/19 07:40 Chloride 110 mmol/L (98-107) H 11/06/19 07:40 Carbon Dioxide 28 mmol/L (21-32) 11/06/19 07:40 Anion Gap 6 MMOL/L (8-16) L 11/06/19 07:40 BUN 18.6 mg/dL (7-18) H 11/06/19 07:40 Creatinine 1.1 mg/dL (0.55-1.3) 11/06/19 07:40 Est GFR (CKD-EPI)AfAm 85.31 11/06/19 07:40 Est GFR (CKD-EPI)NonAf 73.61 11/06/19 07:40 Random Glucose 96 mg/dL (74-106) 11/06/19 07:40 Calcium 8.6 mg/dL (8.5-10.1) 11/06/19 07:40 Total Bilirubin 0.2 mg/dL (0.2-1) 11/06/19 07:40 AST 21 U/L (15-37) 11/06/19 07:40 ALT 28 U/L (13-61) 11/06/19 07:40 Alkaline Phosphatase 88 U/L (45-117) 11/06/19 07:40 Total Protein 6.1 g/dl (6.4-8.2) L 11/06/19 07:40 Albumin 3.3 g/dl (3.4-5.0) L 11/06/19 07:40 RPR Titer Nonreactive (NONREACTIVE) 11/06/19 07:40 Assessment: 11/08/19 13:22 withdrawal symptom Plan: continue detox valium regimen,discharge in am
[2019-11-08] MEDS: OLANZapine 5 MG TABLET PO SCH (14:36)
[2019-11-08 19:31] LABS: URINE APPEARANCE CLEAR; URINE BILIRUBIN NEGATIVE (NEGATIVE); URINE COLOR YELLOW; URINE GLUCOSE (UA) NEGATIVE (NEGATIVE); URINE KETONE NEGATIVE (NEGATIVE); URINE LEUK ESTERASE NEGATIVE (NEGATIVE); URINE NITRITE NEGATIVE (NEGATIVE); URINE PROTEIN NEGATIVE (NEGATIVE); URINE UROBILINOGEN 0.2 mg/dL (0.2-1.0)
[2019-11-08] MEDS: THIAMINE HCL 100 MG TABLET (FP) PO SCH (22:09)
[2019-11-08] MEDS: MIRTAZAPINE 15 MG TABLET (FP) PO SCH (22:09)
[2019-11-08] MEDS: hydrOXYzine PAMOATE 50 MG CAPSULE (FP) PO PRN (22:12)
[2019-11-09] MEDS ORDERED: diazePAM 5 MG TABLET PO ONE (06:00)
[2019-11-09] MEDS ORDERED: METHADONE HCL 40 MG DISPERSABLE TABLET PO SCH (06:00)
--- NOTE | 2019-11-09 09:42 | DS ---
[facility] Detox Discharge Summary Admission Date: 11/05/19 Discharge Date: 11/09/19 - History Present History: Alcohol Dependence, MMTP - Physical Exam Results Vital Signs: Vital Signs Temperature 97.7 F 11/09/19 09:21 Pulse Rate 72 11/09/19 09:21 Respiratory Rate 18 11/09/19 09:21 Blood Pressure 149/81 11/09/19 09:21 O2 Sat by Pulse Oximetry (%) Pertinent Admission Physical Exam Findings: pt arrived in withdrawals Vital Signs Temperature 97.7 F 11/09/19 09:21 Pulse Rate 72 11/09/19 09:21 Respiratory Rate 18 11/09/19 09:21 Blood Pressure 149/81 11/09/19 09:21 O2 Sat by Pulse Oximetry (%) Laboratory Tests 11/06/19 11/06/19 11/06/19 07:40 07:40 07:40 WBC 4.0 RBC 4.54 Hgb 12.0 Hct 37.0 MCV 81.4 MCH 26.4 MCHC 32.4 RDW 15.3 Plt Count 135 MPV 10.1 D Sodium 144 Potassium 4.0 Chloride 110 H Carbon Dioxide 28 Anion Gap 6 L BUN 18.6 H Creatinine 1.1 Est GFR (CKD-EPI)AfAm 85.31 Est GFR (CKD-EPI)NonAf 73.61 Random Glucose 96 Calcium 8.6 Total Bilirubin 0.2 AST 21 ALT 28 Alkaline Phosphatase 88 Total Protein 6.1 L Albumin 3.3 L Urine Color Urine Appearance Urine pH Ur Specific Ernest Urine Protein Urine Glucose (UA) Urine Ketones Urine Blood Urine Nitrite Urine Bilirubin Urine Urobilinogen Ur Leukocyte Esterase RPR Titer Nonreactive 11/07/19 20:05 WBC RBC Hgb Hct MCV MCH MCHC RDW Plt Count MPV Sodium Potassium Chloride Carbon Dioxide Anion Gap BUN Creatinine Est GFR (CKD-EPI)AfAm Est GFR (CKD-EPI)NonAf Random Glucose Calcium Total Bilirubin AST ALT Alkaline Phosphatase Total Protein Albumin Urine Color Yellow Urine Appearance Clear Urine pH 6.0 Ur Specific Ernest 1.013 Urine Protein Negative Urine Glucose (UA) Negative Urine Ketones Negative Urine Blood Negative Urine Nitrite Negative Urine Bilirubin Negative Urine Urobilinogen 0.2 Ur Leukocyte Esterase Negative RPR Titer aaox3 ambulating no acute distress no s/s of withdrawals - Treatment Hospital Course: Detox Protocol Followed, Detoxed Safely, Responded well, Discharged Condition Good, Rehab Referral Accepted Patient has Accepted a Rehab Referral to: pt declined rehab; referral provided - Medication Discharge Medications: Ambulatory Orders Amlodipine Besylate [Norvasc -] 10 mg PO DAILY 03/04/17 Hydrochlorothiazide [Hctz -] 25 mg PO DAILY 03/04/17 Mirtazapine [Remeron -] 15 mg PO HS 11/05/19 Olanzapine 5 mg PO HS 11/05/19 - Diagnosis (1) Alcohol dependence with uncomplicated withdrawal Current Visit: Yes Status: Chronic (2) Abnormal EKG Current Visit: Yes Status: Chronic (3) HTN (hypertension) Current Visit: Yes Status: Chronic Qualifiers: Hypertension type: essential hypertension Qualified Code(s): I10 - Essential (primary) hypertension (4) Hx of traumatic brain injury Current Visit: Yes Status: Chronic (5) Insomnia Current Visit: Yes Status: Chronic (6) Methadone maintenance therapy patient Current Visit: Yes Status: Chronic (7) Nicotine dependence Current Visit: Yes Status: Chronic Qualifiers: Nicotine product type: cigarettes Substance use status: uncomplicated Qualified Code(s): F17.210 - Nicotine dependence, cigarettes, uncomplicated (8) Obesity Current Visit: Yes Status: Chronic (9) Opioid dependence on agonist therapy Current Visit: Yes Status: Chronic (10) Schizophrenia Current Visit: Yes Status: Chronic (11) Opioid dependence with intoxication, uncomplicated Current Visit: No Status: Acute (12) S/P craniotomy Current Visit: No Status: Chronic (13) Uncomplicated opioid dependence Current Visit: No Status: Chronic (14) Hx of seizure disorder Current Visit: No Status: Resolved - AMA Did Patient Leave Against Medical Advice: No
[2019-11-09] MEDS: HYDROCHLOROTHIAZIDE 25 MG TABLET (FP) PO SCH (10:14)
[2019-11-09] MEDS: OLANZapine 5 MG TABLET PO SCH (10:14)
[2019-11-09] MEDS: amLODIPine BESYLATE 10 MG TABLET (FP) PO SCH (10:14)
[2019-11-09] MEDS: PRENATAL VITAMINS W/ FOLIC ACID TABLET (FP) PO SCH (10:14)
[2019-11-09] MEDS: NICOTINE 14 MG/24 HOURS TOPICAL PATCH TD SCH (10:42)
[2019-11-09 13:03] VITALS: BP 120/61; PULSE 69; TEMP 97.1
== END 2019-11-09 14:46 | disposition other institution (70) | DRG 773 ==
LOC: YASAS 15:31 → Y6N 21:11
PROVIDERS: ADMIT Allergy & Immunology; ATTEND Allergy & Immunology
PROC: HZ2ZZZZ Detoxification Services for Substance Abuse Treatment (ICD-10-PCS; principal; 2019-11-05)
DX: F10.230 Alcohol dependence with withdrawal, uncomplicated (principal); F11.20 Opioid dependence, uncomplicated; F11.220 Opioid dependence with intoxication, uncomplicated; F13.20 Sedative, hypnotic or anxiolytic dependence, uncomplicated; F17.210 Nicotine dependence, cigarettes, uncomplicated; F20.9 Schizophrenia, unspecified; F41.8 Other specified anxiety disorders; F32.9 Major depressive disorder, single episode, unspecified; G47.00 Insomnia, unspecified; I10 Essential (primary) hypertension; Z87.820 Personal history of traumatic brain injury; E66.9 Obesity, unspecified; Z68.30 Body mass index [BMI] 30.0-30.9, adult; Z86.69 Personal history of other diseases of the nervous system and sense organs; R94.31 Abnormal electrocardiogram [ECG] [EKG]; Z98.890 Other specified postprocedural states
CPT/HCPCS: 36415; 80053; 81003; 85027; 86593; 93005; 93010

== ENCOUNTER 2019-11-09 15:25 | Inpatient (IN) | payer OTHER ==
--- NOTE | 2019-11-09 14:52 | HP ---
AMAIRANI GARCIA Rehab Assess/Revision - Admission History Admitted to [facility]hab [facility] - Findings Detox History & Physical reviewed: Yes Concur with findings: Yes Inpatient Rehab Admission - Rehab Decision to Admit Inpatient rehab admission?: Yes - Initial Determination Are CD services needed?: Yes Free of communicable disease: Yes Not in need of hospitalization: Yes - Rehab Admission Criteria Previous failed treatment: Yes Poor recovery environment: Yes Comorbidities: Yes Lacks judgement: Yes Patient is meeting Inpatient Rehab admission criteria:: Yes
[~2019-11-09 15:25] MED LIST: ACETAMINOPHEN 325 MG TABLET (FP) PO PRN; IBUPROFEN 400 MG TABLET (FP) PO PRN; LOPERAMIDE HCL 2 MG CAPSULE PO PRN; MAGNESIUM CITRATE 300 ML BOTTLE PO PRN; MAGNESIUM HYDROX 2400MG/30ML ORAL SUSPENSION 30 ML CUP PO PRN; MENTHOL/PHENOL 1 EACH UD MM PRN; NICOTINE POLACRILEX 4 MG GUM BUC PRN; P-EPHED 60MG/TRIPROLIDI 2.5MG TABLET PO PRN; guaiFENesin 200 MG/10 ML 10 ML UNIT-DOSE CUPS PO PRN
[2019-11-09] MEDS ORDERED: PT OWN MED DRAWER 7, Y5N ONE (20:58)
[2019-11-09] MEDS: THIAMINE HCL 100 MG TABLET (FP) PO SCH (21:03)
[2019-11-09] MEDS: MIRTAZAPINE 15 MG TABLET (FP) PO SCH (21:03)
[2019-11-09] MEDS: hydrOXYzine PAMOATE 50 MG CAPSULE (FP) PO PRN (21:04)
[2019-11-09] MEDS: MELATONIN 5 MG TABLETS PO PRN (21:04)
[2019-11-10] MEDS: METHADONE HCL 40 MG DISPERSABLE TABLET PO SCH (06:08)
[2019-11-10] MEDS: PRENATAL VITAMINS W/ FOLIC ACID TABLET (FP) PO SCH (10:36)
[2019-11-10] MEDS: amLODIPine BESYLATE 10 MG TABLET (FP) PO SCH (10:36)
[2019-11-10] MEDS: OLANZapine 5 MG TABLET PO SCH (10:36)
[2019-11-10] MEDS: HYDROCHLOROTHIAZIDE 25 MG TABLET (FP) PO SCH (10:36)
[2019-11-10] MEDS: NICOTINE 21 MG/24 HOURS TOPICAL PATCH TD SCH (10:37)
--- NOTE | 2019-11-10 11:07 | PN ---
[facility] Progress Note (SOAP) Subjective: patient admitted to rehab, [facility] PMHx: 59 yo presents w/ alcohol and opiate use mandated. Seizure 3 years ago. Used to be on Dilantin. Denies blackouts or overdoses. Alcohol use began at age 17. Currently drinks 1/2 - 1 pint vodka daily x 4 months. Drinks 1 -16 oz beer. Last drink 11/04/19. Heroin use since age 20. Hx 2 yrs MMTP before going to [facility] in July. Current Methadone dose is "80 or 90" mg (Unsure). States LDM 11/05/19. States relapsing w/ heroin when misses clinic visit. Nicotine use since age teens. Currently smokes 1/2 PPD. PMHx: HTN, Sporadic seizures r/t TBI (None in 3 yrs) Hx Abnormak EKG noted on 03/05/17. MHHx: Depression. Anxiety. Schizophrenia. On meds. Sees a Psych regularly. Denies thoughts of harming self or others. SHx: Domiciled. Unemployed (SSI). States currently mandated by [place]. Objective: 11/10/19 11:08 Vital Signs Period Temp Pulse Resp BP Sys/[place]erson Pulse Ox Last 24 Hr 98.6 F-100 F 79-91 18-18 157-167/79-81 P/E: General: no apparent distress HEENTM: Normocephalic, PERRLA Neuro: Cn 2-12 intact MSK: full weight bearing Assessment: Admitted to rehab, [facility] Substance use rehab treatment 11/10/19 11:10 Plan: Continue with treatment maintain safety Reviewed orders and home medications
[2019-11-10] MEDS: THIAMINE HCL 100 MG TABLET (FP) PO SCH (21:36)
[2019-11-10] MEDS: MELATONIN 5 MG TABLETS PO PRN (21:36)
[2019-11-10] MEDS: MIRTAZAPINE 15 MG TABLET (FP) PO SCH (21:36)
[2019-11-10] MEDS: hydrOXYzine PAMOATE 50 MG CAPSULE (FP) PO PRN (21:37)
[2019-11-11] MEDS: METHADONE HCL 40 MG DISPERSABLE TABLET PO SCH (05:59)
[2019-11-11] MEDS: amLODIPine BESYLATE 10 MG TABLET (FP) PO SCH (10:34)
[2019-11-11] MEDS: HYDROCHLOROTHIAZIDE 25 MG TABLET (FP) PO SCH (10:34)
[2019-11-11] MEDS: PRENATAL VITAMINS W/ FOLIC ACID TABLET (FP) PO SCH (10:34)
[2019-11-11] MEDS: OLANZapine 5 MG TABLET PO SCH (10:34)
[2019-11-11] MEDS: hydrOXYzine PAMOATE 50 MG CAPSULE (FP) PO PRN ×2 (10:35→21:07)
[2019-11-11] MEDS: NICOTINE 21 MG/24 HOURS TOPICAL PATCH TD SCH (10:37)
[2019-11-11] MEDS: THIAMINE HCL 100 MG TABLET (FP) PO SCH (21:05)
[2019-11-11] MEDS: MIRTAZAPINE 15 MG TABLET (FP) PO SCH (21:05)
[2019-11-11] MEDS: MELATONIN 5 MG TABLETS PO PRN (21:06)
[2019-11-12] MEDS: METHADONE HCL 40 MG DISPERSABLE TABLET PO SCH (06:01)
[2019-11-12] MEDS: hydrOXYzine PAMOATE 50 MG CAPSULE (FP) PO PRN ×2 (06:03→21:26)
[2019-11-12] MEDS: amLODIPine BESYLATE 10 MG TABLET (FP) PO SCH (09:52)
[2019-11-12] MEDS: OLANZapine 5 MG TABLET PO SCH (09:52)
[2019-11-12] MEDS: HYDROCHLOROTHIAZIDE 25 MG TABLET (FP) PO SCH (09:52)
[2019-11-12] MEDS: NICOTINE 21 MG/24 HOURS TOPICAL PATCH TD SCH (09:52)
[2019-11-12] MEDS: PRENATAL VITAMINS W/ FOLIC ACID TABLET (FP) PO SCH (09:52)
[2019-11-12] MEDS ORDERED: PT OWN MED DRAWER 7, Y5N ONE ×2 (10:01→10:37)
[2019-11-12] MEDS: MIRTAZAPINE 15 MG TABLET (FP) PO SCH (21:25)
[2019-11-12] MEDS: THIAMINE HCL 100 MG TABLET (FP) PO SCH (21:25)
[2019-11-12] MEDS: MELATONIN 5 MG TABLETS PO PRN (21:25)
[2019-11-13] MEDS: METHADONE HCL 40 MG DISPERSABLE TABLET PO SCH (06:03)
[2019-11-13] MEDS: amLODIPine BESYLATE 10 MG TABLET (FP) PO SCH (10:15)
[2019-11-13] MEDS: HYDROCHLOROTHIAZIDE 25 MG TABLET (FP) PO SCH (10:15)
[2019-11-13] MEDS: NICOTINE 21 MG/24 HOURS TOPICAL PATCH TD SCH (10:15)
[2019-11-13] MEDS: PRENATAL VITAMINS W/ FOLIC ACID TABLET (FP) PO SCH (10:15)
[2019-11-13] MEDS: OLANZapine 5 MG TABLET PO SCH (10:15)
[2019-11-13] MEDS: MAG HYDROX/AL HYDROX/SIMETH 30 ML UNIT-DOSE CUP PO PRN (10:17)
[2019-11-13] MEDS: THIAMINE HCL 100 MG TABLET (FP) PO SCH (21:09)
[2019-11-13] MEDS: MELATONIN 5 MG TABLETS PO PRN (21:09)
[2019-11-13] MEDS: MIRTAZAPINE 15 MG TABLET (FP) PO SCH (21:09)
[2019-11-13] MEDS: hydrOXYzine PAMOATE 50 MG CAPSULE (FP) PO PRN (21:10)
[2019-11-13] MEDS ORDERED: PT OWN MED DRAWER 7, Y5N ONE (21:40)
[2019-11-14] MEDS: METHADONE HCL 40 MG DISPERSABLE TABLET PO SCH (06:07)
[2019-11-14] MEDS: amLODIPine BESYLATE 10 MG TABLET (FP) PO SCH (09:22)
[2019-11-14] MEDS: HYDROCHLOROTHIAZIDE 25 MG TABLET (FP) PO SCH (09:22)
[2019-11-14] MEDS: NICOTINE 21 MG/24 HOURS TOPICAL PATCH TD SCH (09:22)
[2019-11-14] MEDS: OLANZapine 5 MG TABLET PO SCH (09:22)
[2019-11-14] MEDS: PRENATAL VITAMINS W/ FOLIC ACID TABLET (FP) PO SCH (09:22)
[2019-11-14] MEDS: MAG HYDROX/AL HYDROX/SIMETH 30 ML UNIT-DOSE CUP PO PRN (09:23)
[2019-11-14] MEDS: SIMETHICONE 80 MG TAB.CHEW (FP) PO PRN (19:08)
[2019-11-14] MEDS: MELATONIN 5 MG TABLETS PO PRN (21:06)
[2019-11-14] MEDS: THIAMINE HCL 100 MG TABLET (FP) PO SCH (21:06)
[2019-11-14] MEDS: MIRTAZAPINE 15 MG TABLET (FP) PO SCH (21:06)
[2019-11-14] MEDS: hydrOXYzine PAMOATE 50 MG CAPSULE (FP) PO PRN (21:06)
[2019-11-15] MEDS: METHADONE HCL 40 MG DISPERSABLE TABLET PO SCH (06:05)
[2019-11-15] MEDS: PRENATAL VITAMINS W/ FOLIC ACID TABLET (FP) PO SCH (09:41)
[2019-11-15] MEDS: amLODIPine BESYLATE 10 MG TABLET (FP) PO SCH (09:41)
[2019-11-15] MEDS: HYDROCHLOROTHIAZIDE 25 MG TABLET (FP) PO SCH (09:41)
[2019-11-15] MEDS: OLANZapine 5 MG TABLET PO SCH (09:41)
[2019-11-15] MEDS: NICOTINE 21 MG/24 HOURS TOPICAL PATCH TD SCH (09:42)
[2019-11-15] MEDS: MELATONIN 5 MG TABLETS PO PRN (21:30)
[2019-11-15] MEDS: THIAMINE HCL 100 MG TABLET (FP) PO SCH (21:30)
[2019-11-15] MEDS: MIRTAZAPINE 15 MG TABLET (FP) PO SCH (21:30)
[2019-11-15] MEDS: hydrOXYzine PAMOATE 50 MG CAPSULE (FP) PO PRN (21:30)
[2019-11-15] MEDS: SIMETHICONE 80 MG TAB.CHEW (FP) PO PRN (21:31)
[2019-11-16] MEDS: METHADONE HCL 40 MG DISPERSABLE TABLET PO SCH (06:15)
[2019-11-16] MEDS: PRENATAL VITAMINS W/ FOLIC ACID TABLET (FP) PO SCH (09:46)
[2019-11-16] MEDS: OLANZapine 5 MG TABLET PO SCH (09:46)
[2019-11-16] MEDS: NICOTINE 21 MG/24 HOURS TOPICAL PATCH TD SCH (09:46)
[2019-11-16] MEDS: HYDROCHLOROTHIAZIDE 25 MG TABLET (FP) PO SCH (09:46)
[2019-11-16] MEDS: hydrOXYzine PAMOATE 50 MG CAPSULE (FP) PO PRN (09:46)
[2019-11-16] MEDS: amLODIPine BESYLATE 10 MG TABLET (FP) PO SCH (09:46)
--- NOTE | 2019-11-16 12:24 | PN ---
[facility] Progress Note (SOAP) Subjective: Patient with prolonged QT interval. Nam score is 5. Objective: general: no apparent distress HEENTM: normocephalic Neck: no JVD Lungs: clear Heart: s1 s2 11/16/19 14:06 Assessment: Prolonged QT interval 11/16/19 12:22 Plan: EKG ordered, vistaril held; immodium discontinued; psych consult iniated to review remeron & zyprexa Patient refused EKG, signed document confirming his refusal Explained consequences of refusing EKG and his medications to patient. Explained to riddhi that there might be significant changes in EKG now that he is in rehab and it is important to his care to evaluate his present condition. Patient indicated understanding, and continued to refuse. Explained to patient about held and discontinued medications. Also, that Psych service needed the EKG to determine what to do about the remeron and zyprexa. Patient continued to refuse.
--- NOTE | 2019-11-16 14:37 | DS ---
[facility] Rehab Discharge Summary - [facility] Rehab Discharge Summary Admission Date: 11/09/19 Discharge Date: 11/17/19 - History Present History: Alcohol dependence, Opioid dependence Pertinent Past History: Patient to be discharged. Abnormal EKG, refused repeat- immodium discontinued and vistaril held; psych consult to review remeron and zyprexa. Please see note. PMHx: 59 yo presents w/ alcohol and opiate use mandated by parole. Seizure 3 years ago. Used to be on Dilantin. Denies blackouts or overdoses. Alcohol use began at age 17. Currently drinks 1/2 - 1 pint vodka daily x 4 months. Drinks 1 -16 oz beer. Last drink 11/04/19. Heroin use since age 20. Hx 2 yrs MMTP before going to [facility] in July. Current Methadone dose is "80 or 90" mg (Unsure). States LDM 11/05/19. States relapsing w/ heroin when misses clinic visit. No Narcan kit at home. Discussed benefits and states is interested in getting one. Nicotine use since age teens. Currently smokes 1/2 PPD. PMHx: HTN, Sporadic seizures r/t TBI (None in 3 yrs) Hx Abnormak EKG noted on 03/05/17. MHHx: Depression. Anxiety. Schizophrenia. On meds. Sees a Psych regularly. Denies thoughts of harming self or others. SHx: Domiciled. Unemployed (SSI). States currently mandated by [employer]. - Discharge Physical Exam Vital Signs: Vital Signs Temperature 98.2 F 11/16/19 12:05 Pulse Rate 73 11/16/19 12:05 Respiratory Rate 18 11/16/19 12:05 Blood Pressure 137/71 11/16/19 12:05 O2 Sat by Pulse Oximetry (%) Pertinent Admission Physical Exam Findings: Physical General Appearance: No apparent distress HEENTM: Normocephalic,SUNSHINE, Respiratory: Lungs Clear Neck:Supple Cardiology: S1, S2, EKG with QT prolongation Abdominal: Non Tender, Flat, Soft, +Bowel Sounds Musculoskeletal: Yes: full range of Motion, Gait Steady Neurological: database management specialist II-XII NML intact, - Treatment Discharge Condition: Outpatient referral accepted (Will go to [facility]. medically stable for discharge.) Hospital Course: Attended groups, had 1:1 with his provider, refused repeat EKG to assess for QT prolongation, which may be affected by medications that were prescribed while he was in treatment. The consequences of prolonged QT elevation and effect of medication was reviewed with the patient and he indicated understanding and continued to refuse. He was adherent to his medication regimen and his treatment plan. - Medication Discharge Medications: Ambulatory Orders Mirtazapine [Remeron -] 15 mg PO HS 11/05/19 Olanzapine 5 mg PO HS 11/05/19 Amlodipine Besylate [Norvasc -] 10 mg PO DAILY #14 tablet 11/16/19 Hydrochlorothiazide [Hctz -] 25 mg PO DAILY #14 tablet 11/16/19 Mirtazapine [Remeron -] 15 mg PO HS #30 tablet 11/17/19 Olanzapine [Zyprexa -] 5 mg PO DAILY #30 tablet 11/17/19 - Medication-Assisted Treatment (MAT) Medication-Assisted Treatment (MAT): No - Discharge Instructions Diet, activity, other medical instructions: Diet: as tolerated Activity: as tolerated Other medical instructions: Please keep aftercare appointment. - Diagnosis (1) Opioid dependence with intoxication, uncomplicated Current Visit: No Status: Chronic (2) Alcohol dependence with uncomplicated withdrawal Current Visit: No Status: Chronic - Follow-up Referral Minutes to complete discharge: 20 - AMA Did Patient Leave Against Medical Advice: No
[2019-11-16] MEDS: MELATONIN 5 MG TABLETS PO PRN (21:16)
[2019-11-16] MEDS: SIMETHICONE 80 MG TAB.CHEW (FP) PO PRN (21:16)
[2019-11-16] MEDS: MIRTAZAPINE 15 MG TABLET (FP) PO SCH (21:16)
[2019-11-16] MEDS: THIAMINE HCL 100 MG TABLET (FP) PO SCH (21:16)
[2019-11-16] MEDS ORDERED: PT OWN MED DRAWER 7, Y5N ONE (21:25)
[2019-11-17] MEDS ORDERED: METHADONE HCL 40 MG DISPERSABLE TABLET PO SCH (06:00)
[2019-11-17 07:10] VITALS: BP 145/82; PULSE 70; TEMP 97.9
--- NOTE | 2019-11-17 08:44 | PN ---
S Progress Note Note: Psychiatric nurse practitioner note: Patient scheduled for discharge today. A 30 day prescription of Zyprexa 5mg daily + Remeron 15mg HS was electronically sent to [facility], [address] [place] [address].
[2019-11-17] MEDS: amLODIPine BESYLATE 10 MG TABLET (FP) PO SCH (09:46)
[2019-11-17] MEDS: NICOTINE 21 MG/24 HOURS TOPICAL PATCH TD SCH (09:46)
[2019-11-17] MEDS: HYDROCHLOROTHIAZIDE 25 MG TABLET (FP) PO SCH (09:46)
[2019-11-17] MEDS: PRENATAL VITAMINS W/ FOLIC ACID TABLET (FP) PO SCH (09:46)
[2019-11-17] MEDS: OLANZapine 5 MG TABLET PO SCH (09:46)
[2019-11-17] MEDS ORDERED: PT OWN MED DRAWER 7, Y5N ONE (09:49)
== END 2019-11-17 09:45 | disposition home or self-care (01) | DRG 772 ==
LOC: YASAS 15:25 → Y3W 15:27
PROVIDERS: ADMIT Neuromusculoskeletal Medicine & OMM; ATTEND Neuromusculoskeletal Medicine & OMM
PROC: HZ42ZZZ Group Counseling for Substance Abuse Treatment, Cognitive-Behavioral (ICD-10-PCS; principal; 2019-11-09)
DX: F11.20 Opioid dependence, uncomplicated (principal); F10.20 Alcohol dependence, uncomplicated; F41.9 Anxiety disorder, unspecified; F20.9 Schizophrenia, unspecified; F32.9 Major depressive disorder, single episode, unspecified; F17.210 Nicotine dependence, cigarettes, uncomplicated; I10 Essential (primary) hypertension; R00.1 Bradycardia, unspecified; E66.9 Obesity, unspecified; Z68.31 Body mass index [BMI] 31.0-31.9, adult; Z86.69 Personal history of other diseases of the nervous system and sense organs; Z87.820 Personal history of traumatic brain injury

== ENCOUNTER 2020-08-15 12:34 | Inpatient (IN) | payer OTHER ==
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
[2020-08-15] MEDS ORDERED: NICOTINE POLACRILEX 2 MG GUM BUC PRN (16:30)
[2020-08-15] MEDS ORDERED: cloNIDine HCL 0.1 MG TABLET PO PRN (16:30)
[2020-08-15] MEDS ORDERED: chlordiazePOXIDE HCL 25 MG CAPSULE PO PRN (16:30)
[2020-08-15] MEDS ORDERED: MAG HYDROX/AL HYDROX/SIMETH 30 ML UNIT-DOSE CUP PO PRN (16:30)
[2020-08-15] MEDS ORDERED: MAGNESIUM CITRATE 300 ML BOTTLE PO PRN (16:30)
[2020-08-15] MEDS ORDERED: BISMUTH SUBSALICYLATE 524 MG/30 ML UD PO PRN (16:30)
[2020-08-15] MEDS ORDERED: METHOCARBAMOL 500 MG TABLET PO PRN (16:30)
[2020-08-15] MEDS ORDERED: ONDANSETRON *ODT* 4 MG TABLET SL PRN (16:30)
[2020-08-15] MEDS ORDERED: MENTHOL/PHENOL 1 EACH UD MM PRN (16:30)
[2020-08-15] MEDS ORDERED: IBUPROFEN 400 MG TABLET (FP) PO PRN (16:30)
[2020-08-15] MEDS ORDERED: METHADONE HCL 10 MG TABLET (FOR DETOX USE ONLY) PO ONE (16:30)
[2020-08-15] MEDS ORDERED: ACETAMINOPHEN 325 MG TABLET (FP) PO PRN ×2 (16:30)
[2020-08-15] MEDS ORDERED: MAGNESIUM HYDROX 2400MG/30ML ORAL SUSPENSION 30 ML CUP PO PRN (16:30)
[2020-08-15] MEDS: hydrOXYzine PAMOATE 25 MG CAPSULE (FP) PO SCH ×2 (18:36→22:46)
[2020-08-15] MEDS: chlordiazePOXIDE HCL 25 MG CAPSULE PO SCH ×2 (18:37→22:48)
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
[2020-08-15] MEDS: MELATONIN 5 MG TABLETS PO SCH (22:46)
[2020-08-15] MEDS: THIAMINE HCL 100 MG TABLET (FP) PO SCH (22:46)
[2020-08-16] MEDS: hydrOXYzine PAMOATE 25 MG CAPSULE (FP) PO SCH ×5 (06:51→22:41)
[2020-08-16] MEDS: chlordiazePOXIDE HCL 25 MG CAPSULE PO SCH (06:51)
[2020-08-16 08:53] VITALS: BMI 33.4
[2020-08-16] MEDS ORDERED: diazePAM 5 MG TABLET PO PRN (08:56)
--- NOTE | 2020-08-16 09:03 | EKG ---
Test Reason : Blood Pressure : / mmHG Vent. Rate : 050 BPM Atrial Rate : 050 BPM P-R Int : 250 ms QRS Dur : 088 ms QT Int : 526 ms P-R-T Axes : 051 024 -08 degrees QTc Int : 479 ms SINUS BRADYCARDIA WITH 1ST DEGREE A-V BLOCK T WAVE ABNORMALITY, CONSIDER ANTERIOR ISCHEMIA PROLONGED QT ABNORMAL ECG WHEN COMPARED WITH ECG OF 05-NOV-2019 22:50, CRITERIA FOR SEPTAL INFARCT ARE NO LONGER PRESENT NONSPECIFIC T WAVE ABNORMALITY HAS REPLACED INVERTED T WAVES IN LATERAL LEADS Confirmed by MD BAILEY, LUIS ([id number]) on 08/16/2020 9:03:01 AM Referred By: Confirmed By:LUIS AVALOS MD
[2020-08-16] MEDS ORDERED: METHADONE HCL 10 MG TABLET PO ONE (09:22)
--- NOTE | 2020-08-16 09:24 | PN ---
S CIWA - CIWA Score Nausea/Vomitin-No Nausea/No Vomiting Muscle Tremors: 3 Anxiety: 3 Agitation: 1-Slight > Activity Paroxysmal Sweats: No Perspiration Orientation: 0-Oriented Tacttile Disturbances: 0-None Auditory Disturbances: 0-None Visual Disturbances: 2-Mild Sensitivity Headache: 2-Mild CIWA-Ar Total Score: 11 S Progress Note (SOAP) Subjective: 60 years old male was admitted on 08/15/20 for benzo withdrawal sx management treating with valium detox regiment methadone 90mg po daily as per verification will be seen by psychiatrist shayy wei Objective: 08/16/20 09:26 Vital Signs - 24 hr 08/15/20 08/15/20 08/15/20 15:51 17:24 17:45 Temperature 97.1 F L 97.1 F L Pulse Rate 59 L 63 Respiratory 16 18 Rate Blood Pressure 137/74 171/93 H O2 Sat by Pulse 97 100 Oximetry (%) 08/15/20 08/16/20 08/16/20 21:06 06:30 08:53 Temperature 97.3 F L 98.1 F 97.1 F L Pulse Rate 50 L 83 59 L Respiratory 20 18 16 Rate Blood Pressure 138/80 137/79 137/74 O2 Sat by Pulse 100 99 Oximetry (%) 08/16/20 09:19 Temperature 96.9 F L Pulse Rate 50 L Respiratory 18 Rate Blood Pressure 124/72 O2 Sat by Pulse Oximetry (%) hypertension 08/16/20 09:26 treated with amlodipine and hctz bp has been improved since detox admission Assessment: 08/16/20 09:28 benzo withdrawal Plan: valium regiment
[2020-08-16] MEDS ORDERED: METHADONE 80 MG, METHADONE 10 MG PO ONE (09:55)
[2020-08-16] MEDS ORDERED: METHADONE (DETOX) 20 MG, METHADONE (DETOX) 5 MG PO ONE (10:00)
[2020-08-16] MEDS ORDERED: METHADONE HCL 40 MG DISPERSABLE TABLET ONE (10:01)
[2020-08-16] MEDS ORDERED: METHADONE HCL 10 MG TABLET ONE (10:01)
[2020-08-16 10:28] LABS: HEMATOCRIT 39.6 % (35.4-49); MCH 27.1 pg (25.7-33.7); MCHC 32.9 g/dl (32.0-35.9); MEAN CELL VOLUME 82.4 fl (80-96); MEAN PLT VOLUME 10.2 fl (7.5-11.1); PLATELET COUNT 132 K/MM3 (134-434); RDW 14.6 % (11.9-15.9)
[2020-08-16] MEDS: amLODIPine BESYLATE 10 MG TABLET (FP) PO SCH (10:43)
[2020-08-16] MEDS: HYDROCHLOROTHIAZIDE 25 MG TABLET (FP) PO SCH (10:44)
[2020-08-16] MEDS: PRENATAL VITAMINS W/ FOLIC ACID TABLET (FP) PO SCH (10:44)
[2020-08-16] MEDS: NICOTINE 7 MG/24 HOURS TOPICAL PATCH TD SCH (10:44)
[2020-08-16] MEDS: diazePAM 5 MG TABLET PO SCH ×3 (10:44→22:41)
[2020-08-16 10:48] LABS: POTASSIUM 3.9 mmol/L (3.5-5.1)
[2020-08-16 11:01] LABS: ALBUMIN 3.5 g/dl (3.4-5.0); BILIRUBIN,TOTAL 0.3 mg/dL (0.2-1); BLOOD UREA NITROGEN 14.7 mg/dL (7-18); CALCIUM 8.9 mg/dL (8.5-10.1); CREATININE 0.9 mg/dL (0.55-1.3); TOT PROT 7.2 g/dl (6.4-8.2)
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
[2020-08-16] MEDS: THIAMINE HCL 100 MG TABLET (FP) PO SCH (22:41)
[2020-08-16] MEDS: MELATONIN 5 MG TABLETS PO SCH (22:41)
[2020-08-16] MEDS: OLANZapine 5 MG TABLET PO SCH (22:41)
[2020-08-16] MEDS: MIRTAZAPINE 15 MG TABLET (FP) PO SCH (22:41)
[2020-08-17] MEDS ORDERED: METHADONE HCL 10 MG TABLET ONE (04:48)
[2020-08-17] MEDS ORDERED: METHADONE HCL 40 MG DISPERSABLE TABLET ONE (04:49)
[2020-08-17] MEDS ORDERED: chlordiazePOXIDE HCL 25 MG CAPSULE PO SCH (05:00)
[2020-08-17] MEDS ORDERED: METHADONE HCL 10 MG TABLET PO SCH (06:00)
[2020-08-17] MEDS: hydrOXYzine PAMOATE 25 MG CAPSULE (FP) PO SCH ×5 (06:33→21:18)
[2020-08-17] MEDS: METHADONE 80 MG, METHADONE 10 MG PO SCH (06:34)
[2020-08-17] MEDS: diazePAM 5 MG TABLET PO SCH ×4 (06:34→22:00)
[2020-08-17] MEDS: HYDROCHLOROTHIAZIDE 25 MG TABLET (FP) PO SCH (09:51)
[2020-08-17] MEDS: PRENATAL VITAMINS W/ FOLIC ACID TABLET (FP) PO SCH (09:51)
[2020-08-17] MEDS: amLODIPine BESYLATE 10 MG TABLET (FP) PO SCH (09:51)
[2020-08-17] MEDS: NICOTINE 7 MG/24 HOURS TOPICAL PATCH TD SCH (09:52)
[2020-08-17] MEDS ORDERED: METHADONE HCL 10 MG TABLET (FOR DETOX USE ONLY) PO ONE (10:00)
--- NOTE | 2020-08-17 11:56 | PN ---
S CIWA - CIWA Score Nausea/Vomitin Muscle Tremors: 3 Anxiety: 2 Agitation: 2 Paroxysmal Sweats: No Perspiration Orientation: 0-Oriented Tacttile Disturbances: 1-Very Mild Itch/Numbness Auditory Disturbances: 0-None Visual Disturbances: 0-None Headache: 1-Very Mild CIWA-Ar Total Score: 11 S Progress Note (SOAP) Subjective: alert,irritable,anxious,interrupted sleep,tremor,aching pain Objective: 08/17/20 16:13 Vital Signs Temperature 97.8 F 08/17/20 12:24 Pulse Rate 81 08/17/20 12:24 Respiratory Rate 20 08/17/20 12:24 Blood Pressure 146/86 08/17/20 12:24 O2 Sat by Pulse Oximetry (%) 97 08/17/20 12:24 Laboratory Last Values WBC 4.0 K/mm3 (4.0-10.0) 08/16/20 07:45 RBC 4.80 M/mm3 (4.00-5.60) 08/16/20 07:45 Hgb 13.0 GM/dL (11.7-16.9) 08/16/20 07:45 Hct 39.6 % (35.4-49) 08/16/20 07:45 MCV 82.4 fl (80-96) 08/16/20 07:45 MCH 27.1 pg (25.7-33.7) 08/16/20 07:45 MCHC 32.9 g/dl (32.0-35.9) 08/16/20 07:45 RDW 14.6 % (11.9-15.9) 08/16/20 07:45 Plt Count 132 K/MM3 (134-434) L 08/16/20 07:45 MPV 10.2 fl (7.5-11.1) 08/16/20 07:45 Sodium 142 mmol/L (136-145) 08/16/20 07:45 Potassium 3.9 mmol/L (3.5-5.1) 08/16/20 07:45 Chloride 108 mmol/L (98-107) H 08/16/20 07:45 Carbon Dioxide 28 mmol/L (21-32) 08/16/20 07:45 Anion Gap 7 MMOL/L (8-16) L 08/16/20 07:45 BUN 14.7 mg/dL (7-18) 08/16/20 07:45 Creatinine 0.9 mg/dL (0.55-1.3) 08/16/20 07:45 Est GFR (CKD-EPI)AfAm 107.97 08/16/20 07:45 Est GFR (CKD-EPI)NonAf 93.16 08/16/20 07:45 Random Glucose 83 mg/dL (74-106) 08/16/20 07:45 Calcium 8.9 mg/dL (8.5-10.1) 08/16/20 07:45 Total Bilirubin 0.3 mg/dL (0.2-1) 08/16/20 07:45 AST 27 U/L (15-37) 08/16/20 07:45 ALT 33 U/L (13-61) 08/16/20 07:45 Alkaline Phosphatase 81 U/L (45-117) 08/16/20 07:45 Total Protein 7.2 g/dl (6.4-8.2) 08/16/20 07:45 Albumin 3.5 g/dl (3.4-5.0) 08/16/20 07:45 Syphilis Serology Non-reactive (NONREACTIVE) 08/16/20 07:45 COVID-19 ([facility]) Not detected (Not Detected) 08/15/20 16:00 Assessment: 08/17/20 16:14 withdrawal symptom Plan: continue valium regimen,continue methadone maintenance 90 mgs/day
[2020-08-17] MEDS: MELATONIN 5 MG TABLETS PO SCH (21:18)
[2020-08-17] MEDS: THIAMINE HCL 100 MG TABLET (FP) PO SCH (21:18)
[2020-08-17] MEDS: MIRTAZAPINE 15 MG TABLET (FP) PO SCH (21:18)
[2020-08-17] MEDS: OLANZapine 5 MG TABLET PO SCH (21:18)
[2020-08-18] MEDS ORDERED: chlordiazePOXIDE HCL 10 MG CAPSULE PO PRN
[2020-08-18] MEDS ORDERED: METHADONE HCL 40 MG DISPERSABLE TABLET ONE (04:55)
[2020-08-18] MEDS ORDERED: METHADONE HCL 10 MG TABLET ONE (04:55)
[2020-08-18] MEDS ORDERED: chlordiazePOXIDE HCL 10 MG CAPSULE PO SCH (05:00)
[2020-08-18] MEDS: hydrOXYzine PAMOATE 25 MG CAPSULE (FP) PO SCH ×5 (06:08→21:38)
[2020-08-18] MEDS: METHADONE 80 MG, METHADONE 10 MG PO SCH (06:08)
[2020-08-18] MEDS: diazePAM 5 MG TABLET PO SCH ×3 (06:08→21:39)
[2020-08-18] MEDS ORDERED: MASKS NR ONE (09:01)
--- NOTE | 2020-08-18 09:18 | PN ---
S CIWA - CIWA Score Nausea/Vomitin-Mild Nausea/No Vomiting Muscle Tremors: 2 Anxiety: 1-Mildly Anxious Agitation: 0-Normal Activity Paroxysmal Sweats: No Perspiration Orientation: 2-Disoriented Date<2 days Tacttile Disturbances: 0-None Auditory Disturbances: 1-Very Mild Visual Disturbances: 1-Very Mild Sensitivity Headache: 0-None Present CIWA-Ar Total Score: 8 BHS Progress Note (SOAP) Subjective: Pt complains of trouble sleeping, light nausea, tremor, anxiety, light and noise sensitivity Objective: 08/18/20 09:19 PE Gnl: WDWN, in no distress MS: nl mentation Motor: moves limbs well Coord: nl Laboratory Tests 08/15/20 08/16/20 08/16/20 16:00 07:45 07:45 WBC 4.0 RBC 4.80 Hgb 13.0 Hct 39.6 MCV 82.4 MCH 27.1 MCHC 32.9 RDW 14.6 Plt Count 132 L MPV 10.2 Sodium Potassium Chloride Carbon Dioxide Anion Gap BUN Creatinine Est GFR (CKD-EPI)AfAm Est GFR (CKD-EPI)NonAf Random Glucose Calcium Total Bilirubin AST ALT Alkaline Phosphatase Total Protein Albumin Syphilis Serology Non-reactive COVID-19 ([facility]) Not detected 08/16/20 07:45 WBC RBC Hgb Hct MCV MCH MCHC RDW Plt Count MPV Sodium 142 Potassium 3.9 Chloride 108 H Carbon Dioxide 28 Anion Gap 7 L BUN 14.7 Creatinine 0.9 Est GFR (CKD-EPI)AfAm 107.97 Est GFR (CKD-EPI)NonAf 93.16 Random Glucose 83 Calcium 8.9 Total Bilirubin 0.3 AST 27 ALT 33 Alkaline Phosphatase 81 Total Protein 7.2 Albumin 3.5 Syphilis Serology COVID-19 ([facility]) Active Medications Generic Name Dose Route Start Last Admin Trade Name Freq PRN Reason Stop Dose Admin Acetaminophen 650 mg 08/15/20 16:30 Tylenol - PO Q6H PRN PAIN LEVEL 4 - 6 Acetaminophen 650 mg 08/15/20 16:30 Tylenol - PO Q6H PRN FEVER Al Hydroxide/Mg Hydroxide 30 ml 08/15/20 16:30 Mylanta Oral Suspension - PO Q6H PRN DYSPEPSIA Amlodipine Besylate 10 mg 08/16/20 10:00 08/17/20 09:51 Norvasc - PO 10 mg DAILY [facility] Administration Bismuth Subsalicylate 524 mg 08/15/20 16:30 Pepto-Bismol - PO Q1H PRN DIARRHEA Diazepam 5 mg 08/18/20 06:00 08/18/20 06:08 Valium - PO 08/18/20 22:01 5 mg TID [facility] Administration Diazepam 5 mg 08/19/20 06:00 Valium - PO 08/19/20 18:01 Q12H [facility] Diazepam 10 mg 08/16/20 08:56 Valium - PO 08/19/20 08:55 Q4H PRN WITHDRAWAL(CONT SUBST) Diazepam 5 mg 08/20/20 06:00 Valium - PO 08/20/20 06:01 ONCE ONE Eucalyptus/Menthol/Phenol/Sorbitol 1 each 08/15/20 16:30 Cepastat Lozenge - MM 08/21/20 16:31 Q4H PRN SORE THROAT Hydrochlorothiazide 25 mg 08/16/20 10:00 08/17/20 09:51 Hctz - PO 25 mg DAILY [facility] Administration Hydroxyzine Pamoate 25 mg 08/15/20 18:00 08/18/20 06:08 Vistaril - PO 08/21/20 16:31 25 mg Q4HWA [facility] Administration Ibuprofen 400 mg 08/15/20 16:30 Motrin - PO Q6H PRN PAIN LEVEL 1 - 3 Magnesium Citrate 300 ml 08/15/20 16:30 Citroma - PO Q48H PRN CONSTIPATION Magnesium Hydroxide 30 ml 08/15/20 16:30 Milk Of Magnesia - PO PRN PRN CONSTIPATION Melatonin 5 mg 08/15/20 22:00 08/17/20 21:18 Melatonin PO 5 mg HS [facility] Administration Methadone HCl 80 mg/ Methadone 90 mg 08/17/20 06:00 08/18/20 06:08 HCl 10 mg PO 08/23/20 05:59 90 mg DAILY@0600 [facility] Administration Methocarbamol 500 mg 08/15/20 16:30 08/16/20 10:44 Robaxin - PO 08/21/20 16:31 500 mg Q6H PRN Administration MUSCLE SPASMS Mirtazapine 15 mg 08/16/20 22:00 08/17/20 21:18 Remeron - PO 15 mg HS [facility] Administration Nicotine 7 mg 08/16/20 10:00 08/17/20 09:52 Nicoderm Patch - TD Not Given DAILY [facility] Nicotine Polacrilex 2 mg 08/15/20 16:30 Nicorette Gum - BUC Q2H PRN NICOTINE REPLACEMENT RX Olanzapine 5 mg 08/16/20 22:00 08/17/20 21:18 Zyprexa - PO 5 mg HS [facility] Administration Ondansetron HCl 4 mg 08/15/20 16:30 Zofran Odt - SL Q8H PRN Nausea/Vomiting Multivit/Folic Acid/Iron 1 tab 08/16/20 10:00 08/17/20 09:51 Vitamins (Sjr) - PO 1 tab DAILY [facility] Administration Thiamine HCl 100 mg 08/15/20 22:00 08/17/20 21:18 Vitamin B1 - PO 100 mg HS [facility] Administration Vital Signs Temperature 97.3 F L 08/18/20 07:54 Pulse Rate 67 08/18/20 07:54 Respiratory Rate 18 08/18/20 07:54 Blood Pressure 125/81 08/18/20 07:54 O2 Sat by Pulse Oximetry (%) 97 08/17/20 12:24 Assessment: 08/18/20 09:13 60 year old male with history alcohol dependence with withdrawals seeking detox. He relapsed right after the last admission here 11/09/19-11/17/19 completed rehab and relapsed 05/2020. He is an opioid dependence on agonist therapy. Imp 1. Alcohol withdrawal, uncomplicated 2. 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 Nicotine dependence 4. Sedative use disorder 5. Depression, anxiety, schizophrenia, seen by Dr. Staley: Initial Treatment Plan: Psychoeducation. Sleep hygiene. Detoxification. support. Medications resumed as : remeron 15 mg po hs + zyprexa 5 mg po hs. Side effects/benefits of these medications are discussed with the patient. Consent (verbal) granted to MD. Whitfield. 08/18/20 09:22 Plan: 1. Valium detox protocol, projected completion on 08/20 2. increase melatonin for sleep 3. psychiatry: resumed Remeron, Zyprexa
[2020-08-18] MEDS ORDERED: METHADONE (DETOX) 10 MG, METHADONE (DETOX) 5 MG PO ONE (10:00)
[2020-08-18] MEDS: NICOTINE 7 MG/24 HOURS TOPICAL PATCH TD SCH (10:26)
[2020-08-18] MEDS: PRENATAL VITAMINS W/ FOLIC ACID TABLET (FP) PO SCH (10:26)
[2020-08-18] MEDS: HYDROCHLOROTHIAZIDE 25 MG TABLET (FP) PO SCH (10:27)
[2020-08-18] MEDS: amLODIPine BESYLATE 10 MG TABLET (FP) PO SCH (10:27)
[2020-08-18] MEDS: OLANZapine 5 MG TABLET PO SCH (21:38)
[2020-08-18] MEDS: MIRTAZAPINE 15 MG TABLET (FP) PO SCH (21:38)
[2020-08-18] MEDS: THIAMINE HCL 100 MG TABLET (FP) PO SCH (21:39)
[2020-08-18] MEDS: MELATONIN 5 MG TABLETS PO SCH (21:40)
[2020-08-19] MEDS ORDERED: METHADONE HCL 40 MG DISPERSABLE TABLET ONE (04:17)
[2020-08-19] MEDS ORDERED: METHADONE HCL 10 MG TABLET ONE (04:17)
[2020-08-19] MEDS ORDERED: chlordiazePOXIDE HCL 10 MG CAPSULE PO SCH (05:00)
[2020-08-19] MEDS: METHADONE 80 MG, METHADONE 10 MG PO SCH (05:24)
[2020-08-19] MEDS: hydrOXYzine PAMOATE 25 MG CAPSULE (FP) PO SCH ×5 (05:24→21:26)
[2020-08-19] MEDS: diazePAM 5 MG TABLET PO SCH ×2 (05:25→17:15)
[2020-08-19] MEDS ORDERED: METHADONE HCL 10 MG TABLET (FOR DETOX USE ONLY) PO ONE (10:00)
--- NOTE | 2020-08-19 10:28 | PN ---
[facility] CIWA - CIWA Score Nausea/Vomitin-No Nausea/No Vomiting Muscle Tremors: None Anxiety: 2 Agitation: 0-Normal Activity Paroxysmal Sweats: 2 Orientation: 0-Oriented Tacttile Disturbances: 0-None Auditory Disturbances: 0-None Visual Disturbances: 0-None Headache: 0-None Present CIWA-Ar Total Score: 4 S Progress Note (SOAP) Subjective: c/o mild withdrawal symptoms. Objective: 08/19/20 10:26 Vital Signs 08/19/20 08/19/20 06:28 08:41 Temperature 97.1 F L 97.1 F L Pulse Rate 94 H 66 Respiratory 18 18 Rate Blood Pressure 131/75 126/81 O2 Sat by Pulse 96 Oximetry (%) Laboratory Last Values WBC 4.0 K/mm3 (4.0-10.0) 08/16/20 07:45 RBC 4.80 M/mm3 (4.00-5.60) 08/16/20 07:45 Hgb 13.0 GM/dL (11.7-16.9) 08/16/20 07:45 Hct 39.6 % (35.4-49) 08/16/20 07:45 MCV 82.4 fl (80-96) 08/16/20 07:45 MCH 27.1 pg (25.7-33.7) 08/16/20 07:45 MCHC 32.9 g/dl (32.0-35.9) 08/16/20 07:45 RDW 14.6 % (11.9-15.9) 08/16/20 07:45 Plt Count 132 K/MM3 (134-434) L 08/16/20 07:45 MPV 10.2 fl (7.5-11.1) 08/16/20 07:45 Sodium 142 mmol/L (136-145) 08/16/20 07:45 Potassium 3.9 mmol/L (3.5-5.1) 08/16/20 07:45 Chloride 108 mmol/L (98-107) H 08/16/20 07:45 Carbon Dioxide 28 mmol/L (21-32) 08/16/20 07:45 Anion Gap 7 MMOL/L (8-16) L 08/16/20 07:45 BUN 14.7 mg/dL (7-18) 08/16/20 07:45 Creatinine 0.9 mg/dL (0.55-1.3) 08/16/20 07:45 Est GFR (CKD-EPI)AfAm 107.97 08/16/20 07:45 Est GFR (CKD-EPI)NonAf 93.16 08/16/20 07:45 Random Glucose 83 mg/dL (74-106) 08/16/20 07:45 Calcium 8.9 mg/dL (8.5-10.1) 08/16/20 07:45 Total Bilirubin 0.3 mg/dL (0.2-1) 08/16/20 07:45 AST 27 U/L (15-37) 08/16/20 07:45 ALT 33 U/L (13-61) 08/16/20 07:45 Alkaline Phosphatase 81 U/L (45-117) 08/16/20 07:45 Total Protein 7.2 g/dl (6.4-8.2) 08/16/20 07:45 Albumin 3.5 g/dl (3.4-5.0) 08/16/20 07:45 Syphilis Serology Non-reactive (NONREACTIVE) 08/16/20 07:45 COVID-19 ([facility]) Not detected (Not Detected) 08/15/20 16:00 Labs noted. Assessment: 08/19/20 10:26 AOX3, in no acute respiratory distress. Full ROM, ambulating in the unit. Mild Withdrawal symptoms. For d/c tomorrow. Plan: continue detox. D/C in AM.
[2020-08-19] MEDS: HYDROCHLOROTHIAZIDE 25 MG TABLET (FP) PO SCH (10:30)
[2020-08-19] MEDS: PRENATAL VITAMINS W/ FOLIC ACID TABLET (FP) PO SCH (10:30)
[2020-08-19] MEDS: amLODIPine BESYLATE 10 MG TABLET (FP) PO SCH (10:30)
[2020-08-19] MEDS: NICOTINE 7 MG/24 HOURS TOPICAL PATCH TD SCH (10:31)
[2020-08-19] MEDS: OLANZapine 5 MG TABLET PO SCH (21:27)
[2020-08-19] MEDS: THIAMINE HCL 100 MG TABLET (FP) PO SCH (21:27)
[2020-08-19] MEDS: MELATONIN 5 MG TABLETS PO SCH (21:27)
[2020-08-19] MEDS: MIRTAZAPINE 15 MG TABLET (FP) PO SCH (21:27)
[2020-08-20] MEDS ORDERED: METHADONE HCL 10 MG TABLET ONE (03:34)
[2020-08-20] MEDS ORDERED: METHADONE HCL 40 MG DISPERSABLE TABLET ONE (03:35)
[2020-08-20] MEDS ORDERED: chlordiazePOXIDE HCL 10 MG CAPSULE PO ONE (05:00)
[2020-08-20] MEDS: METHADONE 80 MG, METHADONE 10 MG PO SCH (05:50)
[2020-08-20] MEDS: hydrOXYzine PAMOATE 25 MG CAPSULE (FP) PO SCH ×2 (05:51→10:30)
[2020-08-20] MEDS ORDERED: diazePAM 5 MG TABLET PO ONE (06:00)
[2020-08-20] MEDS ORDERED: METHADONE HCL 5 MG TABLET (FOR DETOX USE ONLY) PO ONE (06:00)
[2020-08-20 09:57] VITALS: BP 146/88; PULSE 78; TEMP 97.2
[2020-08-20] MEDS: amLODIPine BESYLATE 10 MG TABLET (FP) PO SCH (10:28)
[2020-08-20] MEDS: HYDROCHLOROTHIAZIDE 25 MG TABLET (FP) PO SCH (10:28)
[2020-08-20] MEDS: NICOTINE 7 MG/24 HOURS TOPICAL PATCH TD SCH (10:29)
[2020-08-20] MEDS: PRENATAL VITAMINS W/ FOLIC ACID TABLET (FP) PO SCH (10:29)
--- NOTE | 2020-08-20 15:14 | DS ---
[facility] Detox Discharge Summary Admission Date: 08/15/20 Discharge Date: 08/20/20 - History Present History: Sedative Dependence Additional Comments: 60 years old male was admitted on 08/15/20 for benzo withdrawal sx management treated with valium detox regiment seen by psychiatrist emeterio arellano mr cooney has completed the valium regiment and is tolerated well General Appearance: Yes: No Apparent Distress, Nourished, Appropriately Dressed, Other (SCAR ON HEAD) HEENTM: Yes: EOMI, Hearing grossly Normal, Normal ENT Inspection, Normocephalic, Normal Voice, SUNSHINE, Pharynx Normal, Tm's normal Respiratory: Yes: Chest Non-Tender, Lungs Clear, Normal Breath Sounds, No Respiratory Distress, No Accessory Muscle Use Neck: Yes: No masses,lesions,Nodules, Supple, Trachea in good position Breast: Yes: Within Normal Limits Cardiology: Yes: Regular Rhythm, Regular Rate, S1, S2 Abdominal: Yes: Normal Bowel Sounds, Non Tender, Flat, Soft Genitourinary: Yes: Within Normal Limits Back: Yes: Normal Inspection Musculoskeletal: Yes: full range of Motion, Gait Steady, Pelvis Stable Extremities: Yes: Normal Capillary Refill, Normal Inspection, Normal Range of Motion, Non-Tender Neurological: Yes: coal weigher II-XII NML intact, Fully Oriented, Alert, Motor Strength 5/5, Normal Mood/Affect, Normal Response Integumentary: Yes: Normal Color, Dry, Warm Lymphatic: Yes: Within Normal Limits Pertinent Past History: time for discharge 36 minutes - Physical Exam Results Vital Signs: Vital Signs Temperature 97.2 F L 08/20/20 09:08 Pulse Rate 78 08/20/20 09:08 Respiratory Rate 18 08/20/20 09:08 Blood Pressure 146/88 08/20/20 09:08 O2 Sat by Pulse Oximetry (%) 97 08/20/20 06:17 Pertinent Admission Physical Exam Findings: benzo withdrawal Vital Signs - 24 hr 08/19/20 08/19/20 08/20/20 16:52 20:57 06:17 Temperature 97.3 F L 97.1 F L 98.1 F Pulse Rate 72 69 62 Respiratory 18 18 18 Rate Blood Pressure 135/87 135/85 140/64 O2 Sat by Pulse 98 97 Oximetry (%) 08/20/20 09:08 Temperature 97.2 F L Pulse Rate 78 Respiratory 18 Rate Blood Pressure 146/88 O2 Sat by Pulse Oximetry (%) Laboratory Tests 08/15/20 08/16/20 08/16/20 16:00 07:45 07:45 WBC 4.0 RBC 4.80 Hgb 13.0 Hct 39.6 MCV 82.4 MCH 27.1 MCHC 32.9 RDW 14.6 Plt Count 132 L MPV 10.2 Sodium Potassium Chloride Carbon Dioxide Anion Gap BUN Creatinine Est GFR (CKD-EPI)AfAm Est GFR (CKD-EPI)NonAf Random Glucose Calcium Total Bilirubin AST ALT Alkaline Phosphatase Total Protein Albumin Syphilis Serology Non-reactive COVID-19 ([facility]) Not detected 08/16/20 07:45 WBC RBC Hgb Hct MCV MCH MCHC RDW Plt Count MPV Sodium 142 Potassium 3.9 Chloride 108 H Carbon Dioxide 28 Anion Gap 7 L BUN 14.7 Creatinine 0.9 Est GFR (CKD-EPI)AfAm 107.97 Est GFR (CKD-EPI)NonAf 93.16 Random Glucose 83 Calcium 8.9 Total Bilirubin 0.3 AST 27 ALT 33 Alkaline Phosphatase 81 Total Protein 7.2 Albumin 3.5 Syphilis Serology COVID-19 ([facility]) lab noted - Treatment Hospital Course: Detox Protocol Followed, Detoxed Safely, Responded well, Discharged Condition Good, Rehab Referral Accepted Patient has Accepted a Rehab Referral to: methadone maintenance program - Medication Discharge Medications: Ambulatory Orders Amlodipine Besylate [Norvasc -] 10 mg PO DAILY #14 tablet 11/16/19 Hydrochlorothiazide [Hctz -] 25 mg PO DAILY #14 tablet 11/16/19 Mirtazapine [Remeron -] 15 mg PO HS #30 tablet 11/17/19 Olanzapine [Zyprexa -] 5 mg PO DAILY #30 tablet 11/17/19 - Diagnosis (1) Alcohol dependence with uncomplicated withdrawal Status: Acute (2) HTN (hypertension) Status: Chronic Qualifiers: Hypertension type: essential hypertension Qualified Code(s): I10 - Essential (primary) hypertension (3) Methadone maintenance therapy patient Status: Chronic (4) Nicotine dependence Status: Acute Qualifiers: Nicotine product type: cigarettes Substance use status: in withdrawal Qualified Code(s): F17.213 - Nicotine dependence, cigarettes, with withdrawal - AMA Did Patient Leave Against Medical Advice: No CIWA Score - CIWA Score Nausea/Vomitin-No Nausea/No Vomiting Muscle Tremors: None Anxiety: 1-Mildly Anxious Agitation: 0-Normal Activity Paroxysmal Sweats: 1-Minimal Palms Moist Orientation: 0-Oriented Tacttile Disturbances: 0-None Auditory Disturbances: 0-None Visual Disturbances: 0-None Headache: 0-None Present CIWA-Ar Total Score: 2
== END 2020-08-20 11:52 | disposition home or self-care (01) | DRG 773 ==
LOC: YASAS 12:34 → Y3N 17:21
PROVIDERS: ADMIT Allergy & Immunology; ATTEND Allergy & Immunology
PROC: HZ2ZZZZ Detoxification Services for Substance Abuse Treatment (ICD-10-PCS; principal; 2020-08-15)
DX: F10.230 Alcohol dependence with withdrawal, uncomplicated (principal); F13.230 Sedative, hypnotic or anxiolytic dependence with withdrawal, uncomplicated; F11.20 Opioid dependence, uncomplicated; F17.210 Nicotine dependence, cigarettes, uncomplicated; F20.9 Schizophrenia, unspecified; F41.9 Anxiety disorder, unspecified; F32.9 Major depressive disorder, single episode, unspecified; G47.00 Insomnia, unspecified; B18.2 Chronic viral hepatitis C; E66.9 Obesity, unspecified; Z68.33 Body mass index [BMI] 33.0-33.9, adult; Z87.820 Personal history of traumatic brain injury; Z86.69 Personal history of other diseases of the nervous system and sense organs
CPT/HCPCS: 36415; 80053; 85027; 86780; 93005; 93010; U0003

== ENCOUNTER 2023-05-23 11:03 | Inpatient (IN) | payer OTHER ==
[2023-05-23 11:35] VITALS: BMI 37.6
[2023-05-23] MEDS ORDERED: NICOTINE POLACRILEX 2 MG GUM BUC PRN (12:24)
[2023-05-23] MEDS ORDERED: BENZONATATE 200 MG CAPSULE PO PRN (12:24)
[2023-05-23] MEDS ORDERED: POLYETHYLENE GLYCOL (HEALTHYLAX) 3350 17 GM PACKET PO PRN (12:24)
[2023-05-23] MEDS ORDERED: guaiFENesin 600 MG TABLET.ER (FP) PO PRN (12:24)
[2023-05-23] MEDS ORDERED: MAG HYDROX/AL HYDROX/SIMETH 30 ML UNIT-DOSE CUP PO PRN (12:24)
[2023-05-23] MEDS ORDERED: NALOXONE HCL 0.4 MG/ML VIAL IM PRN (12:24)
[2023-05-23] MEDS ORDERED: DICYCLOMINE HCL 10 MG CAPSULE PO PRN (12:24)
[2023-05-23] MEDS ORDERED: ACETAMINOPHEN 325 MG TABLET (FP) PO PRN (12:24)
[2023-05-23] MEDS ORDERED: LOPERAMIDE HCL 2 MG CAPSULE PO PRN (12:24)
[2023-05-23] MEDS ORDERED: BENZOCAINE/MENTHOL (CHLORASEPTIC ) LOZENGE MM PRN (12:24)
[2023-05-23] MEDS ORDERED: NALOXONE HCL (KLOXXADO) 8 MG SPRAY NS PRN (12:24)
[2023-05-23] MEDS ORDERED: IBUPROFEN 600 MG TABLET (FP) PO PRN (12:24)
[2023-05-23] MEDS ORDERED: hydrOXYzine PAMOATE 25 MG CAPSULE (FP) PO PRN (12:24)
[2023-05-23] MEDS ORDERED: MAGNESIUM HYDROX 2400MG/30ML ORAL SUSPENSION 30 ML CUP PO PRN (12:24)
[2023-05-23] MEDS ORDERED: BISMUTH SUBSALICYLATE 262 MG/15 ML BTL PO PRN (12:24)
[2023-05-23] MEDS ORDERED: IBUPROFEN 400 MG TABLET (FP) PO PRN (12:24)
[2023-05-23] MEDS ORDERED: ONDANSETRON *ODT* 4 MG TABLET SL PRN (12:24)
[2023-05-23] MEDS ORDERED: methaDONE HCL 10 MG TABLET (FOR DETOX USE ONLY) PO ONE (12:27)
[2023-05-23] MEDS ORDERED: cloNIDine HCL 0.1 MG TABLET PO PRN (12:27)
[2023-05-23] MEDS ORDERED: diazePAM 5 MG TABLET PO PRN (12:58)
[2023-05-23] MEDS ORDERED: amLODIPine BESYLATE 5 MG TABLET (FP) ONE (13:47)
[2023-05-23] MEDS ORDERED: PRENATAL VITAMINS W/ FOLIC ACID TABLET (FP) PO ONE (13:47)
[2023-05-23] MEDS ORDERED: NICOTINE 14 MG/24 HOURS TOPICAL PATCH TD ONE (13:47)
[2023-05-23] MEDS ORDERED: methaDONE HCL 10 MG TABLET (FOR DETOX USE ONLY) ONE (13:47)
[2023-05-23] MEDS: PRENATAL VITAMINS W/ FOLIC ACID TABLET (FP) PO SCH (13:55)
[2023-05-23] MEDS: amLODIPine BESYLATE 10 MG TABLET (FP) PO SCH (13:55)
[2023-05-23] MEDS: NICOTINE 14 MG/24 HOURS TOPICAL PATCH TD SCH (13:55)
[2023-05-23 14:34] LABS: HEMATOCRIT 39.9 % (35.4-49); HEMOGLOBIN 13.2 GM/dL (11.7-16.9); MCH 26.3 pg (25.7-33.7); MCHC 33.1 g/dl (32.0-35.9); MEAN CELL VOLUME 79.4 fl (80-96); PLATELET COUNT 195 10^3/uL (134-434); RBC 5.03 M/mm3 (4.00-5.60); RDW 14.5 % (11.9-15.9); WHITE BLOOD COUNT 6.1 K/mm3 (4.0-10.0)
[2023-05-23 14:39] LABS: POTASSIUM 3.8 mmol/L (3.5-5.1)
[2023-05-23 14:52] LABS: ALBUMIN 3.9 g/dl (3.4-5.0); BLOOD UREA NITROGEN 11.8 mg/dL (7-18)
[2023-05-23 14:56] LABS: CREATININE 1.1 mg/dL (0.55-1.3)
[2023-05-23 14:57] LABS: BILIRUBIN,TOTAL 0.3 mg/dL (0.2-1)
[2023-05-23] MEDS: diazePAM 5 MG TABLET PO SCH ×2 (17:44→21:59)
[2023-05-23] MEDS: METHOCARBAMOL 500 MG TABLET PO PRN (18:07)
[2023-05-23] MEDS: THIAMINE HCL 100 MG TABLET (FP) PO SCH (21:59)
[2023-05-23] MEDS: MELATONIN 5 MG TABLETS PO SCH (21:59)
[2023-05-23] MEDS: MIRTAZAPINE 15 MG TABLET (FP) PO SCH (21:59)
[2023-05-24] MEDS: diazePAM 5 MG TABLET PO SCH ×4 (05:59→22:59)
[2023-05-24] MEDS: amLODIPine BESYLATE 10 MG TABLET (FP) PO SCH (10:35)
[2023-05-24] MEDS: NICOTINE 14 MG/24 HOURS TOPICAL PATCH TD SCH (10:35)
[2023-05-24] MEDS: METHOCARBAMOL 500 MG TABLET PO PRN ×2 (10:35→22:59)
[2023-05-24] MEDS: PRENATAL VITAMINS W/ FOLIC ACID TABLET (FP) PO SCH (10:35)
[2023-05-24] MEDS: HYDROCHLOROTHIAZIDE 25 MG TABLET (FP) PO SCH (10:35)
[2023-05-24] MEDS: MIRTAZAPINE 15 MG TABLET (FP) PO SCH (22:59)
[2023-05-24] MEDS: THIAMINE HCL 100 MG TABLET (FP) PO SCH (22:59)
[2023-05-24] MEDS: MELATONIN 5 MG TABLETS PO SCH (22:59)
[2023-05-25] MEDS: diazePAM 5 MG TABLET PO SCH ×2 (06:15→13:53)
[2023-05-25] MEDS ORDERED: methaDONE HCL 10 MG TABLET (FOR DETOX USE ONLY) PO ONE (10:00)
[2023-05-25] MEDS: amLODIPine BESYLATE 10 MG TABLET (FP) PO SCH (10:02)
[2023-05-25] MEDS: HYDROCHLOROTHIAZIDE 25 MG TABLET (FP) PO SCH (10:02)
[2023-05-25] MEDS: PRENATAL VITAMINS W/ FOLIC ACID TABLET (FP) PO SCH (10:02)
[2023-05-25] MEDS: NICOTINE 14 MG/24 HOURS TOPICAL PATCH TD SCH (10:02)
[2023-05-25 19:43] VITALS: BP 173/88; PULSE 86; RESP 18; TEMP 98
[2023-05-26] MEDS ORDERED: diazePAM 5 MG TABLET PO SCH (06:00)
[2023-05-27] MEDS ORDERED: diazePAM 5 MG TABLET PO ONE (06:00)
[2023-05-27] MEDS ORDERED: methaDONE HCL 10 MG TABLET (FOR DETOX USE ONLY) PO ONE (10:00)
== END 2023-05-25 19:30 | disposition left against medical advice (07) | DRG 770 ==
LOC: YASAS 11:03 → Y6N 13:39
PROVIDERS: ADMIT Allergy & Immunology; ATTEND Surgery
PROC: HZ2ZZZZ Detoxification Services for Substance Abuse Treatment (ICD-10-PCS; principal; 2023-05-23)
DX: F11.23 Opioid dependence with withdrawal (principal); F10.230 Alcohol dependence with withdrawal, uncomplicated; F17.210 Nicotine dependence, cigarettes, uncomplicated; F19.282 Other psychoactive substance dependence with psychoactive substance-induced sleep disorder; F19.280 Other psychoactive substance dependence with psychoactive substance-induced anxiety disorder; F25.9 Schizoaffective disorder, unspecified; U07.1 COVID-19; I10 Essential (primary) hypertension; R56.1 Post traumatic seizures; E66.9 Obesity, unspecified; Z68.37 Body mass index [BMI] 37.0-37.9, adult; Z86.19 Personal history of other infectious and parasitic diseases; Z87.820 Personal history of traumatic brain injury; Z86.59 Personal history of other mental and behavioral disorders
CPT/HCPCS: 36415; 80053; 85027; 86780; 87635; 87811